=== PATIENT | female | born 1945 | race Caucasian/White ===

== ENCOUNTER 2018-10-28 12:34 | Inpatient (IN) | payer MEDICARE, SELFPAY ==
[2018-10-28] VITALS (10 sets, daily range): BP systolic 74–118; BP diastolic 42–87; PULSE 70–97; RESP 14–20; TEMP 36.3–36.7; O2SAT 93–97; BMI 36.8; BMI 37.0; BMI 37.1
--- NOTE | 2018-10-28 13:20 | EKG12_ITS ---
Test Reason : GEN ILLNESS Blood Pressure : / mmHG Vent. Rate : 072 BPM Atrial Rate : 072 BPM P-R Int : 170 ms QRS Dur : 102 ms QT Int : 462 ms P-R-T Axes : 066 057 069 degrees QTc Int : 505 ms Normal sinus rhythm Nonspecific ST abnormality Prolonged QT Abnormal ECG Confirmed by VIOLETA BRITTON, PIPPA ([id number]), associate editor MACRINA TORRES ([id number] on 10/31/2018 4:43:32 PM Referred By: Alf Addison Confirmed By:PIPPA MCDANIEL MD
--- NOTE | 2018-10-28 13:20 | RAD_ITS ---
STUDY: X-RAY CHEST REASON FOR EXAM: Female, 73 years old. Cough. TECHNIQUE: Frontal and lateral views of the chest. COMPARISON: None. FINDINGS: The lungs are hyperexpanded. There is a diffuse interstitial pattern. There is no demonstrated pleural abnormality. There is cardiomegaly. Normal mediastinum and aly. Normal visualized pulmonary arteries. There is atherosclerotic calcification of the aortic arch with tortuosity. There are diffuse degenerative changes of the visualized thoracic spine. Normal visualized ribs, clavicles, and shoulders. There is a large hiatal hernia. RAD/Chest PA and Lateral IMPRESSION: Cardiomegaly with hyperexpansion, diffuse interstitial pattern and large hiatal hernia. No acute finding. Electronically Signed: Shayne Weldon MD at 14:43 EST , Service support ,
--- NOTE | 2018-10-28 13:25 | NURSING ---
NO OLD EKG
[2018-10-28 13:33] LABS: Absolute Lymphocyte Count 1.92 X10^3/ul (0.83-4.51); Basophil# 0.04 X10^3/uL; Basophil% 0.3 % (0-1); Eosinophil# 0.06 X10^3/uL; Eosinophils% 0.5 % (0-5); Hematocrit 29.5 % (37-47); Hemoglobin 9.8 g/dl (12.0-15.0); Lymphocyte # 1.92 X10^3/ul (4.0); Lymphocyte % 15.9 % (19-41); Mean Corp Hgb Conc 33.2 g/gl (32-36); Mean Corpuscular Hgb 26.1 pg (27.0-32.0); Mean Corpuscular Volume 78.7 fL (81-99); Mean Platelet Vol. 10.1 fl (6.2-12.0); Monocyte% 8.3 % (0-10); Neutrophil # 9.02 X10^3/uL (2.7-7.7); Neutrophil % 74.7 % (47-70); Platelet Count 255 K/mm3 (150-450); RBC Distribution Width CV 15.7 % (11.6-14.6); RBC Distribution Width SD 45.2 fl (35.1-43.9); Red Blood Count 3.75 M/mm3 (4.2-5.4); White Blood Count 12.1 K/mm3 (4.4-11.0)
[2018-10-28 13:35] LABS: POSITIVE COUNT NO; POSITIVE DIFFERENTIAL NO; POSITIVE MORPHOLOGY NO
[2018-10-28] MEDS: 0.9% Normal Saline 1,000 ML 1000 ML IV (13:38)
[2018-10-28 13:56] LABS: ALB/GLOB Ratio 0.8 RATIO (0.9-2.4); AST(SGOT) 30 U/L (15-37); Alanine Aminotransfer ALT/SGPT 18 U/L (13-56); Albumin, Serum 3.3 g/dL (3.2-5.0); Alkaline Phosphatase 90 U/L (45-117); Anion Gap 17 (5-15); BUN 111 mg/dL (7-18); Calcium,Total 8.1 mg/dL (8.5-10.1); Chloride 92 mmol/L (98-107); Creatinine, Serum 9.28 mg/dL (0.55-1.02); EST Glomerular Filtration Rate 4 mL/min (>60); Est Glom Filt Rate - Afr Amer 5 mL/min (>60); Glucose 95 mg/dL (74-106); Protein, Total 7.3 g/dL (6.4-8.2); Sodium Level 124 mmol/L (136-145)
--- NOTE | 2018-10-28 13:57 | ED.RN ---
bun 111 creat 9.28 called from the lab. dr mena
[2018-10-28 14:05] LABS: Lactic Acid 1.2 mmol/L (0.4-2.0)
--- NOTE | 2018-10-28 14:35 | ED.RN ---
UP TO BSC. UNABLE TO URINATE AT THIS TIME. FEW DRIBBLES.
--- NOTE | 2018-10-28 14:41 | ED.VISSUMM ---
- ER Visit Summary Date of Service: 10/28/18 Chief Complaint: Generalized illness History of Present Illness: The patient is a 73 F presents 1 week history of vague symptoms of dizziness, states not spinning, feels unbalanced. Reports dry mouth, staggering, decreased appetite. No nausea or vomiting. No confusion per significant other. Patient is on blood pressure medicine lisinopril hydrochlorothiazide and amlodipine. Also on gabapentin for myalgias. No recent changes in medications. Denies any chest pains. Reports dealing with upper respiratory cough for the past couple weeks. Saw her PCP was placed on antibiotics, she is unclear of the name. States 1 dose left was taken twice a day. Reports of urine frequency, urinary normal yesterday states today had 2 bouts of urination, last time was prior to arrival. Denies dysuria or hematuria. Denies abdominal pain. No previous similar symptoms in the past. Physical Examination: General: Alert and oriented ?3, no acute distress HEENT: Normocephalic, atraumatic. Moist mucosa membranes Neck: supple, nontender. Cardiovascular: Regular rate and rhythm, no murmurs Respiratory: Normal breath sounds, symmetric, no distress Abdomen: Soft, nontender, nondistended Extremities: Nontender, no edema, pulses intact ?4 Neuro: no focal neurological deficits. Test Results: EKG sinus rate [address] or T wave changes. WBC 12.1, hemoglobin 9.8, platelets 255. Sodium 124, potassium 4, BUN 111, creatinine 1.28. Lactic acid 1.2. Blood culture x2 pending. UA: Pending chest x-ray: No acute process Emergency Department Course and Treatment: Patient initial triage blood pressure 74/42, after my evaluation before intervention was 109/59. She was given IV fluids, sepsis workup initiated due to hypotension. Patient vague symptoms. Results of testing did note hyponatremia sodium 124, there is no old labs for comparison in the system. She is on hydrochlorothiazide which could cause this. In addition results returned acute kidney injury with uremia. BUN 111, creatinine 9.28. Potassium 4.0. EKG normal. Reports making urine. Further discussion with her recent antibiotic she thinks it may be Bactrim which family will pepper picker from home to confirm. He is known to cause false elevation of creatinine. She denies any recent sore throat. Vitals were stable multiple reevaluation's. Lactic acid returned negative at 1.2. Blood culture pending. Chest x-ray is negative. Discussed with hospitalist Dr. Milton for admission for further management. Treatment Plan: [] Disposition: Admission Impression: 1. Acute kidney injury 2. Uremia 3. Hyponatremia This note was generated with [employer] dictation software. It may contain incorrect words, spelling, and punctuation that were not noted in review of the chart prior to signing ED Disposition - Plan for ED Patient: Disposition: Acute Care Hospital [facility] Chief Complaint: General Illness Diagnosis: Acute kidney injury, Uremia, Hyponatremia Referrals: Reuben Martinez MD [Primary Care Provider] -
--- NOTE | 2018-10-28 14:44 | ED.RN ---
pt has transparent fluid filled blister to rt buttocks and 2 open blisters with reddness around perameter
--- NOTE | 2018-10-28 14:46 | ED.DCSUM_ITS ---
- ER Visit Summary Date of Service: 10/28/18 Chief Complaint: Generalized illness History of Present Illness: The patient is a 73 F presents 1 week history of vague symptoms of dizziness, states not spinning, feels unbalanced. Reports dry mouth, staggering, decreased appetite. No nausea or vomiting. No confusion per significant other. Patient is on blood pressure medicine lisinopril hydrochlorothiazide and amlodipine. Also on gabapentin for myalgias. No recent changes in medications. Denies any chest pains. Reports dealing with upper respiratory cough for the past couple weeks. Saw her PCP was placed on antibiotics, she is unclear of the name. States 1 dose left was taken twice a day. Reports of urine frequency, urinary normal yesterday states today had 2 bouts of urination, last time was prior to arrival. Denies dysuria or hematuria. Denies abdominal pain. No previous similar symptoms in the past. Physical Examination: General: Alert and oriented ?3, no acute distress HEENT: Normocephalic, atraumatic. Moist mucosa membranes Neck: supple, nontender. Cardiovascular: Regular rate and rhythm, no murmurs Respiratory: Normal breath sounds, symmetric, no distress Abdomen: Soft, nontender, nondistended Extremities: Nontender, no edema, pulses intact ?4 Neuro: no focal neurological deficits. Test Results: EKG sinus rate [address] or T wave changes. WBC 12.1, hemoglobin 9.8, platelets 255. Sodium 124, potassium 4, BUN 111, creatinine 1.28. Lactic acid 1.2. Blood culture x2 pending. UA: Pending chest x-ray: No acute process Emergency Department Course and Treatment: Patient initial triage blood pressure 74/42, after my evaluation before intervention was 109/59. She was given IV fluids, sepsis workup initiated due to hypotension. Patient vague symptoms. Results of testing did note hyponatremia sodium 124, there is no old labs for comparison in the system. She is on hydrochlorothiazide which could cause this. In addition results returned acute kidney injury with uremia. BUN 111, creatinine 9.28. Potassium 4.0. EKG normal. Reports making urine. Further discussion with her recent antibiotic she thinks it may be Bactrim which family will last picker from home to confirm. He is known to cause false elevation of creatinine. She denies any recent sore throat. Vitals were stable multiple reevaluation's. Lactic acid returned negative at 1.2. Blood culture pending. Chest x-ray is negative. Discussed with hospitalist Dr. Milton for admission for further management. Treatment Plan: [] Disposition: Admission Impression: 1. Acute kidney injury 2. Uremia 3. Hyponatremia This note was generated with [employer] dictation software. It may contain incorrect words, spelling, and punctuation that were not noted in review of the chart prior to signing ED Disposition - Plan for ED Patient: Disposition: Acute Care Hospital [facility] Chief Complaint: General Illness Diagnosis: Acute kidney injury, Uremia, Hyponatremia Referrals: Reuben Martinez MD [Primary Care Provider] -
--- NOTE | 2018-10-28 15:31 | HP.PCM_ITS ---
Problem List (1) Acute kidney injury Status: Acute (2) Hyponatremia Status: Acute (3) Metabolic acidosis Status: Acute History of Present Illness Date of Admission: 10/28/18 Chief Complaint: weakness The patient is a 73 year old F has been feeling weak over the past several weeks. Proximal he 1 week ago, was started on Bactrim for what sounds like an upper respiratory infection. Symptoms of just continue to get worse and patient presented to the emergency room today. In the emergency room, patient was noted to have a sodium of 124 and a creatinine of 9.28. No baseline labs were available to be compare to. Patient denies any history of kidney disease. Patient states that she is not had much of an appetite but has been drinking water continuously. Patient has been urinating without difficulty. [] Past Medical History Medical History: Medical History (Last Updated 10/28/18 @ 15:31 by Alf Addison DO) Anxiety F41.9 HTN (hypertension) I10 Allergies No Known Allergies Allergy (Verified 07/20/17 03:43) Home Medications: Ambulatory Orders Medication Instructions Recorded Triamcinolone 0.1% Cream [Kenalog] 1 applic TOPICAL TID PRN #1 tube 07/20/17 Amlodipine Besylate [Norvasc] 10 mg PO DAILY 10/28/18 Buspirone HCl 30 mg PO BID 10/28/18 Citalopram [Celexa] 10 mg PO DAILY 10/28/18 Gabapentin [Neurontin] 400 mg PO TIDCM 10/28/18 Lisinopril/Hydrochlorothiazide 2 each PO DAILY 10/28/18 [Lisinopril-Hctz 20-12.5 mg Tab] Smz/Tmp Ds [Bactrim Ds] 1 tablet PO BID 10/28/18 Surgical History: no surgical history Psychiatric History: Anxiety Lives: With Family Smoking Status: Current every day smoker Tobacco Use: Non-smoker Alcohol: None Drugs: None - *Family History Maternal History Items: - - no kidney disease Review of Systems Constitutional: Reports: Anorexia. Denies: Chills, Fever, Night Sweats Eyes: Denies: Blurred vision, Double vision HEENT: Denies: Head Aches, Sinus Congestion, Sinus Drainage Cardiovascular: Denies: Chest Pain, Palpitations Respiratory: Denies: Cough, Shortness of breath at rest, Sputum production Gastrointestinal: Denies: Abdominal Pain, Nausea, Vomiting Genitourinary: Denies: Dysuria, Incontinence Musculoskeletal: Denies: Joint Pain, Joint Tenderness Skin: Reports: - - Did develop a sore on her buttocks as patient states that she has been laying around and not getting up since she has been ill.. Denies: Dryness, Jaundice Neurological: Denies: Numbness, Tingling, Focal weakness Psychiatric: Denies: Anxiety, Depression Endocrine: Denies: Change in Body Habitus Hematologic/ Lymphatic: Denies: Easy Bruising, Easy Bleeding, Hx of blood clot Comment: A 10 point review of systems were negative except as mentioned in the history of present illness and the other review of systems. VTE Information - Inpt Only VTE Present on Admission: No VTE Mechan Device Prophylaxis: None VTE Pharm Prophylaxis ordered?: Yes Patient Problems: Active and Suspected Problems Acute kidney injury (Acute) Hyponatremia (Acute) Metabolic acidosis (Acute) - Physical Exam General: Alert, Cooperative, No apparent distress, - - Listless. Afebrile. HEENT: Atraumatic, Normocephalic Oral: Moist Mucosa, No Gingival or Mucosal Lesions/ Ulcerations Neck: No Nodes, Thyroid Normal Size and Texture Lungs: Clear to auscultation, Normal air movement, No rhonchi, No wheeze Cardiovascular: Regular rate, Regular Rhythm, Normal S1, Normal S2, No murmurs Abdomen: Bowel Sounds Present, Soft, Non Tender, Non-Distended, No Hepato- splenomegaly Extremities: No edema, No Calf Tenderness Skin: No rashes, - - Likely stage II left buttocks. Has what appears to be some unroofed bullae x2 on her buttocks. No surrounding erythema to suggest any kind of cellulitis. No induration noted no fluctuance. Musculoskeletal: No Tenderness to Palpation of Joints or Extremities, No Muscle Wasting Neurological: Neuro grossly intact, Sensory exam intact to light touch and pain, - - No clonus Psych/Mental Status: Appropriate, Flat Affect Vital Signs Temp Pulse Resp BP Pulse Ox 36.3 C L 71 16 118/65 97 10/28/18 12:35 10/28/18 15:03 10/28/18 15:03 10/28/18 15:03 10/28/18 15:03 Oxygen Delivery Method Room Air Weight: 91.217 kg Body Mass Index (BMI) 36.8 Laboratory Tests Past 24 Hrs 10/28/18 10/28/18 10/28/18 12:50 12:50 13:30 WBC 12.1 H RBC 3.75 L Hgb 9.8 L Hct 29.5 L MCV 78.7 L MCH 26.1 L MCHC 33.2 RDW 15.7 H RDW Differential 45.2 H Plt Count 255 MPV 10.1 Immature Gran % (Auto) 0.300 Neut % (Auto) 74.7 H Lymph % (Auto) 15.9 L [place] % (Auto) 8.3 Eos % (Auto) 0.5 Baso % (Auto) 0.3 Absolute Neuts (auto) 9.0 H Absolute Lymphs (auto) 1.92 Total Counted Not Reportable Sodium 124 L Potassium 4.0 Chloride 92 L Carbon Dioxide 15.0 L Anion Gap 17 H BUN 111 H* Creatinine 9.28 H* Estim Creat Clear Calc 4.40 Est GFR (MDRD) Af Amer 5 L Est GFR (MDRD) Non-Af 4 L BUN/Creatinine Ratio 12.0 Glucose 95 Lactic Acid 1.2 Calcium 8.1 L Total Bilirubin 0.10 L AST 30 ALT 18 Alkaline Phosphatase 90 Total Protein 7.3 Albumin 3.3 Globulin 4.0 Albumin/Globulin Ratio 0.8 L Assessment/Plan All Active Problems Acute kidney injury (Acute) Hyponatremia (Acute) Metabolic acidosis (Acute) 1. Acute kidney injury Etiology not yet clear, but suspect probably iatrogenic, particularly, Bactrim. Though the lisinopril HCTZ likely also contributing. Hold nephrotoxic agents IV fluids Check urine studies as well as kidney ultrasound I do not anticipate the patient requiring renal replacement therapy. I have consulted nephrology for further assistance and discussed with Dr. Simeon. I will decrease the patient's Neurontin from 400 3 times daily to 100 3 times daily given the acute kidney injury at this time. 2. Hyponatremia Suspect iatrogenic due to HCTZ Hold HCTZ Monitor sodium 3. Metabolic acidosis Secondary to the acute kidney injury No need for bicarbonate at this time 4. Debility and weakness Likely due to the patient's metabolic derangements PT and OT evaluate and treat 5. DVT prophylaxis with subcu heparin 6. Stage II decubitus ulcer Over the right buttocks Just some dry dressings Consult wound care Likely due to the patient being essentially bedbound past several weeks Code Visit Inpatient E&M: 36684 Init Hosp L3
--- NOTE | 2018-10-28 16:02 | PCM.CONS.R ---
Problem List (1) Acute kidney injury Status: Acute (2) Hyponatremia Status: Acute Consultation - Renal PCP/ Referring MD: Requesting physician: [] Primary care physician: Reuben Martinez MD - History of Present Illness History of Present Illness: The patient is a 73 year old F past medical history of hypertension. Patient had symptoms of upper respiratory infection a week ago for which she was started on Bactrim . Upper respiratory infection symptoms improved but patient developed weakness . She presented to the emergency room where she was found to have creatinine of 9 and BUN of 111 . Also sodium was 124 . Patient denies any history of kidney disease . Patient has been taking the same dose of lisinopril /hydrochlorothiazide /Norvasc for a year . She takes ibuprofen 200 mg as needed . She did not take it for the last week . No IV contrast exposure . No recent UTI . Patient is making urine . Patient has also been having low appetite and not eating well for the last week Review of systems : 12 systems review is negative except for generalized weakness [] - Allergies Allergies: Allergies No Known Allergies Allergy (Verified 07/20/17 03:43) - Current Medications Current Medications: Current Medications Acetaminophen (Tylenol) 650 mg PO Q6H PRN PRN PRN Reason: Mild Pain (1-3)/Temp > 100.7 F Amlodipine Besylate (Norvasc) 10 mg PO DAILY [facility] Betamethasone Valerate (Valisone 0.1% Cream) 1 applic TOPICAL TID PRN; Protocol PRN Reason: RASH/TOPICAL IRRITATION Buspirone HCl (Buspar) 30 mg PO BID [facility] Citalopram Hydrobromide (Celexa) 10 mg PO DAILY [facility] Gabapentin (Neurontin) 100 mg PO TIDCM [facility] Heparin Sodium (Porcine) (Heparin Na) 5,000 unit SC Q8 [facility] Sodium Chloride () 1,000 mls @ 150 mls/hr IV .Q6H40M [facility] Stop: 10/29/18 05:08 Magnesium Hydroxide (Milk Of Magnesia) 30 ml PO DAILY PRN PRN PRN Reason: Constipation Ondansetron HCl (Zofran) 4 mg IV Q8H PRN PRN PRN Reason: NAUSEA - Past Surgical History Surgical History: no surgical history - Social History Smoking Status: Current every day smoker Alcohol: None Drugs: None - Family History Maternal History Items: - - no kidney disease Patient Problems: Active and Suspected Problems (Last Updated 10/28/18 @ 15:31 by Alf Addison DO) Acute kidney injury (Acute) Hyponatremia (Acute) Metabolic acidosis (Acute) - Physical Exam General: Alert, Oriented x3 HEENT: Atraumatic Oral: Dry Mucosa Neck: Supple, No JVD Lungs: Clear to auscultation, Normal air movement, No rhonchi Cardiovascular: Regular rate, Regular Rhythm, Normal S1, Normal S2 Abdomen: Bowel Sounds Present, Soft, Non Tender Extremities: No clubbing, No cyanosis, No edema Skin: No rashes Musculoskeletal: No Tenderness to Palpation of Joints or Extremities Lymphatic: No Cervical, Supraclavicular, or Inguinal Adenopathy Neurological: Cranial nerves II-XII grossly intact, Neuro grossly intact Psych/Mental Status: Normal Affect Vital Signs Temp Pulse Resp BP Pulse Ox 97.4 F L 71 16 118/65 97 10/28/18 12:35 10/28/18 15:03 10/28/18 15:03 10/28/18 15:03 10/28/18 15:03 Oxygen Delivery Method Room Air Weight: 91.217 kg Body Mass Index (BMI) 36.8 Laboratory Tests Past 24 Hrs 10/28/18 10/28/18 10/28/18 12:50 12:50 13:30 WBC 12.1 H RBC 3.75 L Hgb 9.8 L Hct 29.5 L MCV 78.7 L MCH 26.1 L MCHC 33.2 RDW 15.7 H RDW Differential 45.2 H Plt Count 255 MPV 10.1 Immature Gran % (Auto) 0.300 Neut % (Auto) 74.7 H Lymph % (Auto) 15.9 L [place] % (Auto) 8.3 Eos % (Auto) 0.5 Baso % (Auto) 0.3 Absolute Neuts (auto) 9.0 H Absolute Lymphs (auto) 1.92 Total Counted Not Reportable Sodium 124 L Potassium 4.0 Chloride 92 L Carbon Dioxide 15.0 L Anion Gap 17 H BUN 111 H* Creatinine 9.28 H* Estim Creat Clear Calc 4.40 Est GFR (MDRD) Af Amer 5 L Est GFR (MDRD) Non-Af 4 L BUN/Creatinine Ratio 12.0 Glucose 95 Lactic Acid 1.2 Calcium 8.1 L Total Bilirubin 0.10 L AST 30 ALT 18 Alkaline Phosphatase 90 Total Protein 7.3 Albumin 3.3 Globulin 4.0 Albumin/Globulin Ratio 0.8 L Assessment/Plan All Active Problems (Last Updated 10/28/18 @ 15:31 by Alf Addison DO) Acute kidney injury (Acute) Hyponatremia (Acute) Metabolic acidosis (Acute) 1-acute kidney injury. Unknown if the patient has chronic kidney disease. There is no BMP available in the system from before. Acute kidney injury is most probably from Bactrim. Creatinine up to 9. BUN 111. Patient still making urine. No indication for hemodialysis. Will send for UA along with urine sodium and urine creatinine to calculate FeNa Order renal ultrasound Agree with holding BIRGIT inhibitor. We will start patient sodium bicarb drip due to acidosis. Check renal function a.m. 2-metabolic acidosis. Most probably from acute kidney injury. I will start the patient on sodium bicarb drip. Check bicarb level in a.m.. 3-hyponatremia. Most probably from dehydration. We will start the patient IV fluid as above Thank you for the consult. Renal team will continue to follow
--- NOTE | 2018-10-28 16:06 | CON.PCM_ITS ---
Problem List (1) Acute kidney injury Status: Acute (2) Hyponatremia Status: Acute Consultation - Renal PCP/ Referring MD: Requesting physician: [] Primary care physician: Reuben Martinez MD - History of Present Illness History of Present Illness: The patient is a 73 year old F past medical history of hypertension. Patient had symptoms of upper respiratory infection a week ago for which she was started on Bactrim . Upper respiratory infection symptoms improved but patient developed weakness . She presented to the emergency room where she was found to have creatinine of 9 and BUN of 111 . Also sodium was 124 . Patient denies any history of kidney disease . Patient has been taking the same dose of lisinopril /hydrochlorothiazide /Norvasc for a year . She takes ibuprofen 200 mg as needed . She did not take it for the last week . No IV contrast exposure . No recent UTI . Patient is making urine . Patient has also been having low appetite and not eating well for the last week Review of systems : 12 systems review is negative except for generalized weakness [] - Allergies Allergies: Allergies No Known Allergies Allergy (Verified 07/20/17 03:43) - Current Medications Current Medications: Current Medications Acetaminophen (Tylenol) 650 mg PO Q6H PRN PRN PRN Reason: Mild Pain (1-3)/Temp > 100.7 F Amlodipine Besylate (Norvasc) 10 mg PO DAILY [facility] Betamethasone Valerate (Valisone 0.1% Cream) 1 applic TOPICAL TID PRN; Protocol PRN Reason: RASH/TOPICAL IRRITATION Buspirone HCl (Buspar) 30 mg PO BID [facility] Citalopram Hydrobromide (Celexa) 10 mg PO DAILY [facility] Gabapentin (Neurontin) 100 mg PO TIDCM [facility] Heparin Sodium (Porcine) (Heparin Na) 5,000 unit SC Q8 [facility] Sodium Chloride () 1,000 mls @ 150 mls/hr IV .Q6H40M [facility] Stop: 10/29/18 05:08 Magnesium Hydroxide (Milk Of Magnesia) 30 ml PO DAILY PRN PRN PRN Reason: Constipation Ondansetron HCl (Zofran) 4 mg IV Q8H PRN PRN PRN Reason: NAUSEA - Past Surgical History Surgical History: no surgical history - Social History Smoking Status: Current every day smoker Alcohol: None Drugs: None - Family History Maternal History Items: - - no kidney disease Patient Problems: Active and Suspected Problems (Last Updated 10/28/18 @ 15:31 by Alf Addison DO) Acute kidney injury (Acute) Hyponatremia (Acute) Metabolic acidosis (Acute) - Physical Exam General: Alert, Oriented x3 HEENT: Atraumatic Oral: Dry Mucosa Neck: Supple, No JVD Lungs: Clear to auscultation, Normal air movement, No rhonchi Cardiovascular: Regular rate, Regular Rhythm, Normal S1, Normal S2 Abdomen: Bowel Sounds Present, Soft, Non Tender Extremities: No clubbing, No cyanosis, No edema Skin: No rashes Musculoskeletal: No Tenderness to Palpation of Joints or Extremities Lymphatic: No Cervical, Supraclavicular, or Inguinal Adenopathy Neurological: Cranial nerves II-XII grossly intact, Neuro grossly intact Psych/Mental Status: Normal Affect Vital Signs Temp Pulse Resp BP Pulse Ox 97.4 F L 71 16 118/65 97 10/28/18 12:35 10/28/18 15:03 10/28/18 15:03 10/28/18 15:03 10/28/18 15:03 Oxygen Delivery Method Room Air Weight: 91.217 kg Body Mass Index (BMI) 36.8 Laboratory Tests Past 24 Hrs 10/28/18 10/28/18 10/28/18 12:50 12:50 13:30 WBC 12.1 H RBC 3.75 L Hgb 9.8 L Hct 29.5 L MCV 78.7 L MCH 26.1 L MCHC 33.2 RDW 15.7 H RDW Differential 45.2 H Plt Count 255 MPV 10.1 Immature Gran % (Auto) 0.300 Neut % (Auto) 74.7 H Lymph % (Auto) 15.9 L [place] % (Auto) 8.3 Eos % (Auto) 0.5 Baso % (Auto) 0.3 Absolute Neuts (auto) 9.0 H Absolute Lymphs (auto) 1.92 Total Counted Not Reportable Sodium 124 L Potassium 4.0 Chloride 92 L Carbon Dioxide 15.0 L Anion Gap 17 H BUN 111 H* Creatinine 9.28 H* Estim Creat Clear Calc 4.40 Est GFR (MDRD) Af Amer 5 L Est GFR (MDRD) Non-Af 4 L BUN/Creatinine Ratio 12.0 Glucose 95 Lactic Acid 1.2 Calcium 8.1 L Total Bilirubin 0.10 L AST 30 ALT 18 Alkaline Phosphatase 90 Total Protein 7.3 Albumin 3.3 Globulin 4.0 Albumin/Globulin Ratio 0.8 L Assessment/Plan All Active Problems (Last Updated 10/28/18 @ 15:31 by Alf Addison DO) Acute kidney injury (Acute) Hyponatremia (Acute) Metabolic acidosis (Acute) 1-acute kidney injury. Unknown if the patient has chronic kidney disease. There is no BMP available in the system from before. Acute kidney injury is most probably from Bactrim. Creatinine up to 9. BUN 111. Patient still making urine. No indication for hemodialysis. Will send for UA along with urine sodium and urine creatinine to calculate FeNa Order renal ultrasound Agree with holding BIRGIT inhibitor. We will start patient sodium bicarb drip due to acidosis. Check renal function a.m. 2-metabolic acidosis. Most probably from acute kidney injury. I will start the patient on sodium bicarb drip. Check bicarb level in a.m.. 3-hyponatremia. Most probably from dehydration. We will start the patient IV fluid as above Thank you for the consult. Renal team will continue to follow
--- NOTE | 2018-10-28 16:53 | NURSING ---
pt reports recently that her PCP told her that her murmur is worsening and ordered EKG-
[2018-10-28] MEDS: 0.9% NaCl Peripheral Flush Adult/Peds IV (17:43)
[2018-10-28] MEDS: Gabapentin 100 MG Capsule PO (17:51)
[2018-10-28 20:50] LABS: Bacteria 0 SEEN /hpf (None Seen); Mucous, Urine 0 SEEN /hpf (<or=2+); Red Blood Cells-Urine 0 SEEN /hpf (0-5); White Blood Cells 0 SEEN /hpf (0-5)
[2018-10-28 20:59] LABS: Color, Urine Yellow (Yellow); Glucose, Dipstick Normal (Normal); Ketone-Dipstick Negative (Negative); Leukocyte Esterase-Dipstick Negative /ul (Negative); Nitrite-Dipstick Negative (Negative); Occult Blood-Urine Negative /ul (Negative); Protein-Dipstick Negative (Negative); Urine Clarity Clear (Clear); Urine Urobilinogen Normal (Normal)
[2018-10-28 21:09] LABS: Squamous Epithelial Cells - UA 0-5 SEEN /hpf (5-10); Urine Bilirubin Dipstick 3 mg/dL (Negative)
[2018-10-28] MEDS: Heparin Injection (Vial) 5,000 UNIT/ML VIAL 5000 UNIT SC (21:26)
[2018-10-28] MEDS: busPIRone 15 MG TABLET 30 MG PO (21:26)
[2018-10-28 21:45] LABS: Urea Nitrogen, Urine 482 mg/dL (NO RANGE EST.)
[2018-10-29 02:50] VITALS: BP 121/53; PULSE 81; RESP 20; TEMP 36.3; O2SAT 95
[2018-10-29 03:00] VITALS: PULSE 81
[2018-10-29] MEDS: Heparin Injection (Vial) 5,000 UNIT/ML VIAL 5000 UNIT SC ×3 (06:14→21:22)
[2018-10-29 06:56] LABS: Absolute Lymphocyte Count 1.46 X10^3/ul (0.83-4.51); Absolute Neutrophil Count 6.2 X10^3/uL (2.0-7.7); Basophil# 0.03 X10^3/uL; Basophil% 0.3 % (0-1); Eosinophil# 0.12 X10^3/uL; Eosinophils% 1.4 % (0-5); Hematocrit 26.5 % (37-47); Hemoglobin 8.9 g/dl (12.0-15.0); Lymphocyte # 1.46 X10^3/ul (4.0); Lymphocyte % 16.7 % (19-41); Mean Corp Hgb Conc 33.6 g/gl (32-36); Mean Corpuscular Hgb 26.1 pg (27.0-32.0); Mean Corpuscular Volume 77.7 fL (81-99); Mean Platelet Vol. 10.7 fl (6.2-12.0); Monocyte# 0.92 X10^3/uL; Monocyte% 10.5 % (0-10); Neutrophil # 6.19 X10^3/uL (2.7-7.7); Neutrophil % 70.8 % (47-70); Platelet Count 210 K/mm3 (150-450); RBC Distribution Width CV 15.2 % (11.6-14.6); RBC Distribution Width SD 41.8 fl (35.1-43.9); Red Blood Count 3.41 M/mm3 (4.2-5.4); White Blood Count 8.8 K/mm3 (4.4-11.0)
[2018-10-29 07:03] LABS: POSITIVE COUNT NO; POSITIVE DIFFERENTIAL NO; POSITIVE MORPHOLOGY NO
[2018-10-29 07:58] LABS: Anion Gap 14 (5-15); BUN 105 mg/dL (7-18); Chloride 91 mmol/L (98-107); Creatinine, Serum 6.99 mg/dL (0.55-1.02); EST Glomerular Filtration Rate 6 mL/min (>60); Est Glom Filt Rate - Afr Amer 7 mL/min (>60); Estimated Creatinine Clearance 5.57 ml/min; Glucose 103 mg/dL (74-106); Potassium 4.9 mmol/L (3.5-5.1); Sodium Level 125 mmol/L (136-145)
--- NOTE | 2018-10-29 09:40 | PCM.PN.HOSP ---
Patient Problems: Active and Suspected Problems (Last Updated 10/28/18 @ 15:31 by Alf Addison DO) Acute kidney injury (Acute) Hyponatremia (Acute) Metabolic acidosis (Acute) Subjective: Patient was admitted with a complaint of feeling of weakness for the past few weeks prior to presentation. He was started on Bactrim about a week prior to presentation fourth seems like an upper respiratory tract infection. His symptoms of weakness and lethargy worsened she came into the ED. He was found to have sodium of 124 and creatinine of 9.28 with no baseline labs available to compare to. She however says she may have any kidney disease. She was admitted to a monitored bed and is being managed for AK I and hyponatremia. Patient seen and examined this morning. She admits to feeling better. She denies any fever or chills, any palpitations, any dizziness, lightheadedness, abdominal 12 point review of systems otherwise negative. Labs and vitals reviewed. Vitals/I&O's: Vital Signs Temp Pulse Resp BP Pulse Ox 97.4 F L 81 20 H 121/53 H 95 10/29/18 02:50 10/29/18 03:00 10/29/18 02:50 10/29/18 02:50 10/29/18 02:50 Oxygen Delivery Method Room Air Weight: 201 lb 8.04 oz Body Mass Index (BMI) 37.0 Intake and Output for Last 24 Hours 10/27/18 10/28/18 10/29/18 23:59 23:59 23:59 Intake Total 1984 766 / 766 Output Total 425 / 425 Balance 1560 / 1560 766 / 766 General: Alert, Oriented x3, Cooperative, No apparent distress HEENT: Atraumatic, PERRLA, EOMI, Normocephalic Oral: Moist Mucosa Neck: Supple, No JVD, Negative Carotid Bruits Lungs: Clear to auscultation, Normal air movement, No rhonchi, No wheeze, No rales Cardiovascular: Regular rate, Regular Rhythm, Normal S1, Normal S2, - - grade 2-3 systolic murmur loudest in aortic and pulmonary valve areas Abdomen: Bowel Sounds Present, Soft, Non Tender, Non-Distended, No Hepato-splenomegaly Extremities: No clubbing, No cyanosis, No edema, Capillary Refill Less than 3 Seconds Skin: No rashes, No breakdown Musculoskeletal: No Tenderness to Palpation of Joints or Extremities Lymphatic: No Cervical, Supraclavicular, or Inguinal Adenopathy Neurological: Cranial nerves II-XII grossly intact, Neuro grossly intact, Motor Exam 5/5 strength throughout Psych/Mental Status: Normal Affect, Appropriate, Alert and oriented to time, place, person, mood and affect Laboratory Results 10/28/18 12:50: WBC 12.1 H, RBC 3.75 L, Hgb 9.8 L, Hct 29.5 L, MCV 78.7 L, MCH 26.1 L, MCHC 33.2, RDW 15.7 H, RDW Differential 45.2 H, Plt Count 255, MPV 10.1, Immature Gran % (Auto) 0.300, Neut % (Auto) 74.7 H, Lymph % (Auto) 15.9 L, [place] % (Auto) 8.3, Eos % (Auto) 0.5, Baso % (Auto) 0.3, Absolute Neuts (auto) 9.0 H, Absolute Lymphs (auto) 1.92, Total Counted Not Reportable 10/28/18 12:50: Sodium 124 L, Potassium 4.0, Chloride 92 L, Carbon Dioxide 15.0 L, Anion Gap 17 H, BUN 111 H*, Creatinine 9.28 H*, Estim Creat Clear Calc 4.40, Est GFR (MDRD) Af Amer 5 L, Est GFR (MDRD) Non-Af 4 L, BUN/Creatinine Ratio 12.0, Glucose 95, Calcium 8.1 L, Total Bilirubin 0.10 L, AST 30, ALT 18, Alkaline Phosphatase 90, Total Protein 7.3, Albumin 3.3, Globulin 4.0, Albumin/Globulin Ratio 0.8 L 10/28/18 13:30: Lactic Acid 1.2 10/28/18 19:37: Urine Color Yellow, Urine Clarity Clear, Urine pH 5.0, Ur Specific [place] 1.020, Urine Protein Negative, Urine Glucose (UA) Normal, Urine Ketones Negative, Urine Occult Blood Negative, Urine Nitrite Negative, Urine Bilirubin 3 H, Urine Urobilinogen Normal, Ur Leukocyte Esterase Negative, Urine RBC 0 SEEN, Urine WBC 0 SEEN, Ur Squamous Epith Cells 0-5 SEEN, Urine Bacteria 0 SEEN, Urine Mucus 0 SEEN 10/28/18 19:37: Eos Smear Total Cells Pending 10/28/18 19:37: Urine Creatinine 120.00 10/28/18 19:37: Urine Urea Nitrogen 482 10/29/18 06:05: WBC 8.8, RBC 3.41 L, Hgb 8.9 L, Hct 26.5 L, MCV 77.7 L, MCH 26.1 L, MCHC 33.6, RDW 15.2 H, RDW Differential 41.8, Plt Count 210, MPV 10.7, Immature Gran % (Auto) 0.300, Neut % (Auto) 70.8 H, Lymph % (Auto) 16.7 L, [place] % (Auto) 10.5 H, Eos % (Auto) 1.4, Baso % (Auto) 0.3, Absolute Neuts (auto) 6.2, Absolute Lymphs (auto) 1.46, Total Counted Not Reportable 10/29/18 06:05: Sodium 125 L, Potassium 4.9, Chloride 91 L, Carbon Dioxide 20.0 L, Anion Gap 14, BUN 105 H*, Creatinine 6.99 H, Estim Creat Clear Calc 5.57, Est GFR (MDRD) Af Amer 7 L, Est GFR (MDRD) Non-Af 6 L, BUN/Creatinine Ratio 15.0, Glucose 103, Calcium 8.0 L 10/29/18 06:05: Sodium Cancelled, Potassium Cancelled, Chloride Cancelled, Carbon Dioxide Cancelled, Anion Gap Cancelled, BUN Cancelled, Creatinine Cancelled, Estim Creat Clear Calc Cancelled, Est GFR (MDRD) Af Amer Cancelled, Est GFR (MDRD) Non-Af Cancelled, BUN/Creatinine Ratio Cancelled, Glucose Cancelled, Calcium Cancelled Diagnostic Data Chest X-Ray 10/28/18 13:20 IMPRESSION: Cardiomegaly with hyperexpansion, diffuse interstitial pattern and large hiatal hernia. No acute finding. Electronically Signed: Shayne Weldon MD at 14:43 EST , Service support , Current Medications Acetaminophen (Tylenol) 650 mg PO Q6H PRN PRN PRN Reason: Mild Pain (1-3)/Temp > 100.7 F Amlodipine Besylate (Norvasc) 10 mg PO DAILY [facility] Betamethasone Valerate (Valisone 0.1% Cream) 1 applic TOPICAL TID PRN; Protocol PRN Reason: RASH/TOPICAL IRRITATION Buspirone HCl (Buspar) 30 mg PO BID [facility] Last Admin: 10/28/18 21:26 Dose: 30 mg Citalopram Hydrobromide (Celexa) 10 mg PO DAILY [facility] Gabapentin (Neurontin) 100 mg PO TIDCM [facility] Last Admin: 10/28/18 17:51 Dose: 100 mg Heparin Sodium (Porcine) (Heparin Na) 5,000 unit SC Q8 [facility] Last Admin: 10/29/18 06:14 Dose: 5,000 unit Sodium Bicarbonate 50 meq/ (Dextrose) 1,050 mls @ 150 mls/hr IV .Q7H [facility] Stop: 10/29/18 18:01 Magnesium Hydroxide (Milk Of Magnesia) 30 ml PO DAILY PRN PRN PRN Reason: Constipation Nutritional Formula (Lactose Free) (Ensure Enlive) 120 ml PO 4X/DAY [facility] Last Admin: 10/28/18 21:31 Dose: 120 ml Ondansetron HCl (Zofran) 4 mg IV Q8H PRN PRN PRN Reason: NAUSEA Sodium Chloride () 5 - 15 ml IV UD PRN PRN Reason: SALINE FLUSH Last Admin: 10/28/18 17:43 Dose: 10 ml Medical Necessity - Tobacco Use Smoking Status: Current every day smoker Tobacco Use: Non-smoker Assessment/Plan All Active Problems (Last Updated 10/28/18 @ 15:31 by Alf Addison DO) Acute kidney injury (Acute) Hyponatremia (Acute) Metabolic acidosis (Acute) 1. ILANA possibly pre-renal from decreased intake, and also possibly medication induced, from Bactrim has no complaints this morning. Feels well Cr was 9.28 on admission; has trended down to 6.99 today on IVF NS @ 100cc/hr; will increase to 250cc/hr o/a of hyponatremia will monitor kidney function UA was normal; FeURrea was 33.6, suggesting pre-renal disease renal USG ordered and is pending nephrology consulted; awaiting rec's 2. Acute hypovolemic hyponatremia Na was 124 on admission; is up to 125 today no baseline to compare with will check serum osmolality, urine osmolality and urine sodium will hydrate at 250cc/hr and check BMP q6hrly; goal is to correct sodium by 8-10 mmol/L over 24hours nephrology on board 3. Acute anion gap acidosis due to uremia improving. ANion gap was 17 on admission, with bicarb of 15 bicarb is up to 20 today and anion gap is down to 14. continue hydrating with IVF and monitor Also sodium bicarb drip 4. Stage II decubitus ulcer: present on admission. Wound care consult. 5. Debility due to general medical condition PT/OT consulted 6. Hypertension: controlled. On amlodipine. Lisinopril and HCTZ on hold o/a of hyponatremia and ILANA 7. Depression: On buspirone and citalopram DVT prophylaxis: heparin Code Visit Inpatient E&M: [id number] [facility] Hosp L3
--- NOTE | 2018-10-29 09:54 | PN_ITS ---
Patient Problems: Active and Suspected Problems (Last Updated 10/28/18 @ 15:31 by Alf Addison DO) Acute kidney injury (Acute) Hyponatremia (Acute) Metabolic acidosis (Acute) Subjective: Patient was admitted with a complaint of feeling of weakness for the past few weeks prior to presentation. He was started on Bactrim about a week prior to presentation fourth seems like an upper respiratory tract infection. His symptoms of weakness and lethargy worsened she came into the ED. He was found to have sodium of 124 and creatinine of 9.28 with no baseline labs available to compare to. She however says she may have any kidney disease. She was admitted to a monitored bed and is being managed for AK I and hyponatremia. Patient seen and examined this morning. She admits to feeling better. She denies any fever or chills, any palpitations, any dizziness, lightheadedness, abdominal 12 point review of systems otherwise negative. Labs and vitals reviewed. Vitals/I&O's: Vital Signs Temp Pulse Resp BP Pulse Ox 97.4 F L 81 20 H 121/53 H 95 10/29/18 02:50 10/29/18 03:00 10/29/18 02:50 10/29/18 02:50 10/29/18 02:50 Oxygen Delivery Method Room Air Weight: 201 lb 8.04 oz Body Mass Index (BMI) 37.0 Intake and Output for Last 24 Hours 10/27/18 10/28/18 10/29/18 23:59 23:59 23:59 Intake Total 1984 766 / 766 Output Total 425 / 425 Balance 1560 / 1560 766 / 766 General: Alert, Oriented x3, Cooperative, No apparent distress HEENT: Atraumatic, PERRLA, EOMI, Normocephalic Oral: Moist Mucosa Neck: Supple, No JVD, Negative Carotid Bruits Lungs: Clear to auscultation, Normal air movement, No rhonchi, No wheeze, No rales Cardiovascular: Regular rate, Regular Rhythm, Normal S1, Normal S2, - - grade 2- 3 systolic murmur loudest in aortic and pulmonary valve areas Abdomen: Bowel Sounds Present, Soft, Non Tender, Non-Distended, No Hepato- splenomegaly Extremities: No clubbing, No cyanosis, No edema, Capillary Refill Less than 3 Seconds Skin: No rashes, No breakdown Musculoskeletal: No Tenderness to Palpation of Joints or Extremities Lymphatic: No Cervical, Supraclavicular, or Inguinal Adenopathy Neurological: Cranial nerves II-XII grossly intact, Neuro grossly intact, Motor Exam 5/5 strength throughout Psych/Mental Status: Normal Affect, Appropriate, Alert and oriented to time, place, person, mood and affect Laboratory Results 10/28/18 12:50: WBC 12.1 H, RBC 3.75 L, Hgb 9.8 L, Hct 29.5 L, MCV 78.7 L, MCH 26.1 L, MCHC 33.2, RDW 15.7 H, RDW Differential 45.2 H, Plt Count 255, MPV 10.1, Immature Gran % (Auto) 0.300, Neut % (Auto) 74.7 H, Lymph % (Auto) 15.9 L, [place] % (Auto) 8.3, Eos % (Auto) 0.5, Baso % (Auto) 0.3, Absolute Neuts (auto) 9.0 H, Absolute Lymphs (auto) 1.92, Total Counted Not Reportable 10/28/18 12:50: Sodium 124 L, Potassium 4.0, Chloride 92 L, Carbon Dioxide 15.0 L, Anion Gap 17 H, BUN 111 H*, Creatinine 9.28 H*, Estim Creat Clear Calc 4.40, Est GFR (MDRD) Af Amer 5 L, Est GFR (MDRD) Non-Af 4 L, BUN/Creatinine Ratio 12.0, Glucose 95, Calcium 8.1 L, Total Bilirubin 0.10 L, AST 30, ALT 18, Al kaline Phosphatase 90, Total Protein 7.3, Albumin 3.3, Globulin 4.0, Albumin/Globulin Ratio 0.8 L 10/28/18 13:30: Lactic Acid 1.2 10/28/18 19:37: Urine Color Yellow, Urine Clarity Clear, Urine pH 5.0, Ur Specific [place] 1.020, Urine Protein Negative, Urine Glucose (UA) Normal, Urine Ketones Negative, Urine Occult Blood Negative, Urine Nitrite Negative, Urine Bilirubin 3 H, Urine Urobilinogen Normal, Ur Leukocyte Esterase Negative, Urine RBC 0 SEEN, Urine WBC 0 SEEN, Ur Squamous Epith Cells 0-5 SEEN, Urine Bacteria 0 SEEN, Urine Mucus 0 SEEN 10/28/18 19:37: Eos Smear Total Cells Pending 10/28/18 19:37: Urine Creatinine 120.00 10/28/18 19:37: Urine Urea Nitrogen 482 10/29/18 06:05: WBC 8.8, RBC 3.41 L, Hgb 8.9 L, Hct 26.5 L, MCV 77.7 L, MCH 26.1 L, MCHC 33.6, RDW 15.2 H, RDW Differential 41.8, Plt Count 210, MPV 10.7, Immature Gran % (Auto) 0.300, Neut % (Auto) 70.8 H, Lymph % (Auto) 16.7 L, [place] % (Auto) 10.5 H, Eos % (Auto) 1.4, Baso % (Auto) 0.3, Absolute Neuts (auto) 6.2, Absolute Lymphs (auto) 1.46, Total Counted Not Reportable 10/29/18 06:05: Sodium 125 L, Potassium 4.9, Chloride 91 L, Carbon Dioxide 20.0 L, Anion Gap 14, BUN 105 H*, Creatinine 6.99 H, Estim Creat Clear Calc 5.57, Est GFR (MDRD) Af Amer 7 L, Est GFR (MDRD) Non-Af 6 L, BUN/Creatinine Ratio 15.0, Glucose 103, Calcium 8.0 L 10/29/18 06:05: Sodium Cancelled, Potassium Cancelled, Chloride Cancelled, Carbon Dioxide Cancelled, Anion Gap Cancelled, BUN Cancelled, Creatinine Cancelled, Estim Creat Clear Calc Cancelled, Est GFR (MDRD) Af Amer Cancelled, Est GFR (MDRD) Non-Af Cancelled, BUN/Creatinine Ratio Cancelled, Glucose Cancelled, Calcium Cancelled Diagnostic Data Chest X-Ray 10/28/18 13:20 IMPRESSION: Cardiomegaly with hyperexpansion, diffuse interstitial pattern and large hiatal hernia. No acute finding. Electronically Signed: Shayne Weldon MD at 14:43 EST , Service support , Current Medications Acetaminophen (Tylenol) 650 mg PO Q6H PRN PRN PRN Reason: Mild Pain (1-3)/Temp > 100.7 F Amlodipine Besylate (Norvasc) 10 mg PO DAILY [facility] Betamethasone Valerate (Valisone 0.1% Cream) 1 applic TOPICAL TID PRN; Protocol PRN Reason: RASH/TOPICAL IRRITATION Buspirone HCl (Buspar) 30 mg PO BID [facility] Last Admin: 10/28/18 21:26 Dose: 30 mg Citalopram Hydrobromide (Celexa) 10 mg PO DAILY [facility] Gabapentin (Neurontin) 100 mg PO TIDCM [facility] Last Admin: 10/28/18 17:51 Dose: 100 mg Heparin Sodium (Porcine) (Heparin Na) 5,000 unit SC Q8 [facility] Last Admin: 10/29/18 06:14 Dose: 5,000 unit Sodium Bicarbonate 50 meq/ (Dextrose) 1,050 mls @ 150 mls/hr IV .Q7H [facility] Stop: 10/29/18 18:01 Magnesium Hydroxide (Milk Of Magnesia) 30 ml PO DAILY PRN PRN PRN Reason: Constipation Nutritional Formula (Lactose Free) (Ensure Enlive) 120 ml PO 4X/DAY [facility] Last Admin: 10/28/18 21:31 Dose: 120 ml Ondansetron HCl (Zofran) 4 mg IV Q8H PRN PRN PRN Reason: NAUSEA Sodium Chloride () 5 - 15 ml IV UD PRN PRN Reason: SALINE FLUSH Last Admin: 10/28/18 17:43 Dose: 10 ml Medical Necessity - Tobacco Use Smoking Status: Current every day smoker Tobacco Use: Non-smoker Assessment/Plan All Active Problems (Last Updated 10/28/18 @ 15:31 by Alf Addison DO) Acute kidney injury (Acute) Hyponatremia (Acute) Metabolic acidosis (Acute) 1. ILANA possibly pre-renal from decreased intake, and also possibly medication induced, from Bactrim * has no complaints this morning. Feels well * Cr was 9.28 on admission; has trended down to 6.99 today * on IVF NS @ 100cc/hr; will increase to 250cc/hr o/a of hyponatremia * will monitor kidney function * UA was normal; FeURrea was 33.6, suggesting pre-renal disease * renal USG ordered and is pending * nephrology consulted; awaiting rec's * 2. Acute hypovolemic hyponatremia * Na was 124 on admission; is up to 125 today * no baseline to compare with * will check serum osmolality, urine osmolality and urine sodium * will hydrate at 250cc/hr and check BMP q6hrly; goal is to correct sodium by 8- 10 mmol/L over 24hours * nephrology on board * 3. Acute anion gap acidosis due to uremia * improving. ANion gap was 17 on admission, with bicarb of 15 * bicarb is up to 20 today and anion gap is down to 14. * continue hydrating with IVF and monitor * Also sodium bicarb drip * 4. Stage II decubitus ulcer: present on admission. Wound care consult. 5. Debility due to general medical condition * PT/OT consulted 6. Hypertension: controlled. On amlodipine. Lisinopril and HCTZ on hold o/a of hyponatremia and ILANA 7. Depression: On buspirone and citalopram DVT prophylaxis: heparin Code Visit Inpatient E&M: 48505 [facility] Hosp L3
[2018-10-29 09:56] VITALS: BP 118/68; PULSE 66; RESP 18; TEMP 36.9; O2SAT 97
[2018-10-29] MEDS: busPIRone 15 MG TABLET 30 MG PO ×2 (10:00→21:22)
[2018-10-29] MEDS: Gabapentin 100 MG Capsule PO ×3 (10:00→15:57)
[2018-10-29] MEDS: amLODIPine 10 MG Tablet PO (10:01)
[2018-10-29] MEDS: Citalopram 10 MG Tablet PO (10:01)
[2018-10-29 11:09] LABS: Urine Sodium 42 mmol/L (Not Establ.)
[2018-10-29 11:27] LABS: Osmolality, Urine 300 mOsm/KG
[2018-10-29 12:02] LABS: Osmolality, Serum 286 mOsm/KG (280-301)
[2018-10-29 14:21] VITALS: BP 102/48; PULSE 76; RESP 18; TEMP 36.7; O2SAT 98
--- NOTE | 2018-10-29 15:49 | US_ITS ---
STUDY: RENAL ULTRASOUND - COMPLETE REASON FOR EXAM: Female, 73 years old. Acute kidney injury. TECHNIQUE: Ultrasound evaluation of the kidneys was performed with real-time and static smith-scale imaging. COMPARISON: None. FINDINGS: RIGHT KIDNEY: Normal location of the right kidney, which is normal in size. The right kidney measures 11.0 x 4.1 x 4.6 cm. There is a normal cortex of the right kidney. The renal cortex measures 1.4 cm. There is no right renal mass or cyst. There are no right renal calculi. There is no right hydronephrosis. DISTAL RIGHT URETER: There is non-visualization of the distal right ureter. There is no demonstrated right ureterovesical junction calculus. There is no demonstrated right ureteral jet. LEFT KIDNEY: Normal location of the left kidney, which is normal in size. The left kidney measures 10.9 x 5.6 x 5.2 cm. There is a normal cortex of the left kidney. The renal cortex measures 1.5 cm. There is no left renal mass or cyst. There are no left renal calculi. There is no left hydronephrosis. DISTAL LEFT URETER: There is non-visualization of the distal left ureter. There is no demonstrated left ureterovesical junction calculus. There is no demonstrated left ureteral jet. BLADDER: The urinary bladder has a volume of 482 ml. No post void images or measurements of the urinary bladder were obtained. There is a normal wall thickness of the distended urinary bladder. There is no demonstrated mass within the urinary bladder. There are no demonstrated bladder calculi. US/Kidney and Bladder IMPRESSION: Normal ultrasound of the kidneys and urinary bladder. Post void measurements of the urinary bladder were not obtained. Electronically Signed: Jose Antonio Li MD at 2:57 EST , Service support ,
--- NOTE | 2018-10-29 15:56 | PCM.PN.REN ---
Patient Problems: Active and Suspected Problems (Last Updated 10/28/18 @ 15:31 by Alf Addison DO) Acute kidney injury (Acute) Hyponatremia (Acute) Metabolic acidosis (Acute) Subjective: Patient states she has poor appetite. No nausea no vomiting. No shortness of breath - Physical Exam General: Alert, Oriented x3 HEENT: Atraumatic Oral: Moist Mucosa Neck: Supple, No JVD Lungs: Clear to auscultation, Normal air movement, No rhonchi, No wheeze Cardiovascular: Regular rate, Regular Rhythm, Normal S1, Normal S2 Abdomen: Bowel Sounds Present, Soft, Non Tender Extremities: No clubbing, No cyanosis, No edema Skin: No rashes Musculoskeletal: No Tenderness to Palpation of Joints or Extremities Lymphatic: No Cervical, Supraclavicular, or Inguinal Adenopathy Neurological: Cranial nerves II-XII grossly intact, Neuro grossly intact Psych/Mental Status: Normal Affect Vital Signs Temp Pulse Resp BP Pulse Ox 98.1 F 76 18 102/48 L 98 10/29/18 14:21 10/29/18 14:21 10/29/18 14:21 10/29/18 14:21 10/29/18 14:21 Oxygen Delivery Method Room Air Weight: 91.4 kg Body Mass Index (BMI) 37.0 Intake and Output for Last 24 Hours 10/27/18 10/28/18 10/29/18 23:59 23:59 23:59 Intake Total 1984 1864 / 1864 Output Total 425 / 425 1200 / 1200 Balance 1560 / 1560 664 / 664 Laboratory Tests Past 24 Hrs 10/28/18 10/28/18 10/28/18 19:37 19:37 19:37 WBC RBC Hgb Hct MCV MCH MCHC RDW RDW Differential Plt Count MPV Immature Gran % (Auto) Neut % (Auto) Lymph % (Auto) [place] % (Auto) Eos % (Auto) Baso % (Auto) Absolute Neuts (auto) Absolute Lymphs (auto) Total Counted Eos Smear Total Cells Pending Sodium Potassium Chloride Carbon Dioxide Anion Gap BUN Creatinine Estim Creat Clear Calc Est GFR (MDRD) Af Amer Est GFR (MDRD) Non-Af BUN/Creatinine Ratio Glucose Serum Osmolality Calcium Urine Color Yellow Urine Clarity Clear Urine pH 5.0 Ur Specific [place] 1.020 Urine Protein Negative Urine Glucose (UA) Normal Urine Ketones Negative Urine Occult Blood Negative Urine Nitrite Negative Urine Bilirubin 3 H Urine Urobilinogen Normal Ur Leukocyte Esterase Negative Urine RBC 0 SEEN Urine WBC 0 SEEN Ur Squamous Epith Cells 0-5 SEEN Urine Bacteria 0 SEEN Urine Mucus 0 SEEN Urine Osmolality Ur Random Sodium Urine Creatinine 120.00 Urine Urea Nitrogen 10/28/18 10/29/18 10/29/18 19:37 06:05 06:05 WBC 8.8 RBC 3.41 L Hgb 8.9 L Hct 26.5 L MCV 77.7 L MCH 26.1 L MCHC 33.6 RDW 15.2 H RDW Differential 41.8 Plt Count 210 MPV 10.7 Immature Gran % (Auto) 0.300 Neut % (Auto) 70.8 H Lymph % (Auto) 16.7 L [place] % (Auto) 10.5 H Eos % (Auto) 1.4 Baso % (Auto) 0.3 Absolute Neuts (auto) 6.2 Absolute Lymphs (auto) 1.46 Total Counted Not Reportable Eos Smear Total Cells Sodium 125 L Potassium 4.9 Chloride 91 L Carbon Dioxide 20.0 L Anion Gap 14 BUN 105 H* Creatinine 6.99 H Estim Creat Clear Calc 5.57 Est GFR (MDRD) Af Amer 7 L Est GFR (MDRD) Non-Af 6 L BUN/Creatinine Ratio 15.0 Glucose 103 Serum Osmolality Calcium 8.0 L Urine Color Urine Clarity Urine pH Ur Specific [place] Urine Protein Urine Glucose (UA) Urine Ketones Urine Occult Blood Urine Nitrite Urine Bilirubin Urine Urobilinogen Ur Leukocyte Esterase Urine RBC Urine WBC Ur Squamous Epith Cells Urine Bacteria Urine Mucus Urine Osmolality Ur Random Sodium Urine Creatinine Urine Urea Nitrogen 482 10/29/18 10/29/18 10/29/18 06:05 10:40 10:40 WBC RBC Hgb Hct MCV MCH MCHC RDW RDW Differential Plt Count MPV Immature Gran % (Auto) Neut % (Auto) Lymph % (Auto) [place] % (Auto) Eos % (Auto) Baso % (Auto) Absolute Neuts (auto) Absolute Lymphs (auto) Total Counted Eos Smear Total Cells Sodium Cancelled Potassium Cancelled Chloride Cancelled Carbon Dioxide Cancelled Anion Gap Cancelled BUN Cancelled Creatinine Cancelled Estim Creat Clear Calc Cancelled Est GFR (MDRD) Af Amer Cancelled Est GFR (MDRD) Non-Af Cancelled BUN/Creatinine Ratio Cancelled Glucose Cancelled Serum Osmolality Calcium Cancelled Urine Color Urine Clarity Urine pH Ur Specific [place] Urine Protein Urine Glucose (UA) Urine Ketones Urine Occult Blood Urine Nitrite Urine Bilirubin Urine Urobilinogen Ur Leukocyte Esterase Urine RBC Urine WBC Ur Squamous Epith Cells Urine Bacteria Urine Mucus Urine Osmolality 300 Ur Random Sodium 42 Urine Creatinine Urine Urea Nitrogen 10/29/18 11:16 WBC RBC Hgb Hct MCV MCH MCHC RDW RDW Differential Plt Count MPV Immature Gran % (Auto) Neut % (Auto) Lymph % (Auto) [place] % (Auto) Eos % (Auto) Baso % (Auto) Absolute Neuts (auto) Absolute Lymphs (auto) Total Counted Eos Smear Total Cells Sodium Potassium Chloride Carbon Dioxide Anion Gap BUN Creatinine Estim Creat Clear Calc Est GFR (MDRD) Af Amer Est GFR (MDRD) Non-Af BUN/Creatinine Ratio Glucose Serum Osmolality 286 Calcium Urine Color Urine Clarity Urine pH Ur Specific [place] Urine Protein Urine Glucose (UA) Urine Ketones Urine Occult Blood Urine Nitrite Urine Bilirubin Urine Urobilinogen Ur Leukocyte Esterase Urine RBC Urine WBC Ur Squamous Epith Cells Urine Bacteria Urine Mucus Urine Osmolality Ur Random Sodium Urine Creatinine Urine Urea Nitrogen Medical Necessity - Tobacco Use Smoking Status: Current every day smoker Tobacco Use: Non-smoker Assessment/Plan All Active Problems (Last Updated 10/28/18 @ 15:31 by Alf Addison DO) Acute kidney injury (Acute) Hyponatremia (Acute) Metabolic acidosis (Acute) 1-acute kidney injury. Unknown if the patient has chronic kidney disease. There is no BMP available in the system from before. Acute kidney injury is most probably from Bactrim and decreased oral intake. Creatinine peaked at 9 mg/dL presentation. Kidney function is improving with IV fluid. Please continue IV fluid at 150 cc/h No indication for hemodialysis. Renal ultrasound still pending Continue holding BIRGIT inhibitor Check renal function a.m. 2-Metabolic acidosis. Most probably from acute kidney injury. Improved. Continue sodium bicarb drip Check bicarb level in a.m.. 3-hyponatremia. Most probably from dehydration. Sodium level today 125. I will switch sodium bicarb drip to isotonic sodium bicarb drip Thank you for the consult. Renal team will continue to follow
[2018-10-29 21:10] VITALS: BP 97/52; PULSE 80; RESP 18; TEMP 36.8; O2SAT 94
[2018-10-29 21:20] VITALS: PULSE 80; RESP 18; O2SAT 94
[2018-10-30 02:00] VITALS: BP 134/64; PULSE 74; RESP 18; TEMP 36.8; O2SAT 95
[2018-10-30] MEDS: Ondansetron 4 MG/2 ML Vial IV ×2 (02:13→10:01)
[2018-10-30 02:15] VITALS: PULSE 74
[2018-10-30] MEDS: Heparin Injection (Vial) 5,000 UNIT/ML VIAL 5000 UNIT SC ×2 (05:48→22:48)
[2018-10-30 06:24] LABS: Absolute Lymphocyte Count 1.03 X10^3/ul (0.83-4.51); Absolute Neutrophil Count 4.1 X10^3/uL (2.0-7.7); Basophil# 0.01 X10^3/uL; Basophil% 0.2 % (0-1); Eosinophil# 0.07 X10^3/uL; Eosinophils% 1.2 % (0-5); Hematocrit 25.1 % (37-47); Hemoglobin 8.5 g/dl (12.0-15.0); Lymphocyte # 1.03 X10^3/ul (4.0); Lymphocyte % 17.1 % (19-41); Mean Corp Hgb Conc 33.9 g/gl (32-36); Mean Corpuscular Hgb 26.2 pg (27.0-32.0); Mean Corpuscular Volume 77.5 fL (81-99); Mean Platelet Vol. 10.3 fl (6.2-12.0); Monocyte# 0.78 X10^3/uL; Monocyte% 12.9 % (0-10); Neutrophil # 4.14 X10^3/uL (2.7-7.7); Neutrophil % 68.4 % (47-70); Platelet Count 190 K/mm3 (150-450); RBC Distribution Width SD 41.1 fl (35.1-43.9); Red Blood Count 3.24 M/mm3 (4.2-5.4)
[2018-10-30 06:29] LABS: Anion Gap 11 (5-15); BUN 68 mg/dL (7-18); BUN/Creat Ratio 21.9 RATIO (10-20); Calcium,Total 7.9 mg/dL (8.5-10.1); Chloride 84 mmol/L (98-107); EST Glomerular Filtration Rate 16 mL/min (>60); Est Glom Filt Rate - Afr Amer 19 mL/min (>60); Estimated Creatinine Clearance 12.56 ml/min; Glucose 123 mg/dL (74-106); Sodium Level 126 mmol/L (136-145)
[2018-10-30 07:09] LABS: POSITIVE COUNT NO; POSITIVE DIFFERENTIAL NO; POSITIVE MORPHOLOGY NO
[2018-10-30] MEDS: Citalopram 10 MG Tablet PO (07:58)
[2018-10-30] MEDS: Gabapentin 100 MG Capsule PO ×3 (07:58→17:00)
[2018-10-30] MEDS: busPIRone 15 MG TABLET 30 MG PO ×2 (07:58→22:48)
[2018-10-30 08:00] VITALS: BP 110/50; PULSE 74; RESP 18; TEMP 36.6; O2SAT 95
--- NOTE | 2018-10-30 10:05 | PCM.PN.HOSP ---
Patient Problems: Active and Suspected Problems (Last Updated 10/28/18 @ 15:31 by Alf Addison DO) Acute kidney injury (Acute) Hyponatremia (Acute) Metabolic acidosis (Acute) Subjective: Patient is a 73-year-old lady admitted with progressive generalized weakness. Patient was found to have acute kidney injury with creatinine greater than 9. She had apparently been prescribed Bactrim for an upper respiratory tract infection. Objective: GENERAL: cooperative HEENT: Atraumatic; moist oral mucosa EYES; Anicteric, Normal Conjunctiva NECK; supple, normal thyroid, no distended JVD. RESPIRATORY: Diminished to auscultation bilaterally, CARDIOVASCULAR: Regular S1 S2, no audible murmurs GI: soft, non-tender, normoactive bowel sounds, : No Renal angle tenderness; EXTREMITIES: No edema, no clubbing, no cyanosis. MUSCULOSKELETAL: No Joint Tenderness; no muscle waisting NEURO: Awake; no lateralizing signs. SKIN: No Rash PSYCH; Normal affect Vitals/I&O's: Vital Signs Temp Pulse Resp BP Pulse Ox 97.8 F 74 18 110/50 L 95 10/30/18 08:00 10/30/18 08:00 10/30/18 08:00 10/30/18 08:00 10/30/18 08:00 Oxygen Delivery Method Room Air Weight: 91.4 kg Body Mass Index (BMI) 37.0 Intake and Output for Last 24 Hours 10/28/18 10/29/18 10/30/18 23:59 23:59 23:59 Intake Total 1984 / 1984 1864 / 1864 2633 / 2633 Output Total 425 / 425 1200 / 1200 Balance 1560 / 1560 664 / 664 2633 / 2633 Laboratory Results 10/29/18 10:40: Ur Random Sodium 42 10/29/18 10:40: Urine Osmolality 300 10/29/18 11:16: Serum Osmolality 286 10/30/18 05:30: WBC 6.0, RBC 3.24 L, Hgb 8.5 L, Hct 25.1 L, MCV 77.5 L, MCH 26.2 L, MCHC 33.9, RDW 15.0 H, RDW Differential 41.1, Plt Count 190, MPV 10.3, Immature Gran % (Auto) 0.200, Neut % (Auto) 68.4, Lymph % (Auto) 17.1 L, [place] % (Auto) 12.9 H, Eos % (Auto) 1.2, Baso % (Auto) 0.2, Absolute Neuts (auto) 4.1, Absolute Lymphs (auto) 1.03, Total Counted Not Reportable 10/30/18 05:30: Sodium 126 L, Potassium 4.0, Chloride 84 L, Carbon Dioxide 31.0, Anion Gap 11, BUN 68 H, Creatinine 3.10 H, Estim Creat Clear Calc 12.56, Est GFR (MDRD) Af Amer 19 L, Est GFR (MDRD) Non-Af 16 L, BUN/Creatinine Ratio 21.9 H, Glucose 123 H, Calcium 7.9 L Current Medications Acetaminophen (Tylenol) 650 mg PO Q6H PRN PRN PRN Reason: Mild Pain (1-3)/Temp > 100.7 F Amlodipine Besylate (Norvasc) 10 mg PO DAILY [facility] Last Admin: 10/30/18 07:58 Dose: Not Given Betamethasone Valerate (Valisone 0.1% Cream) 1 applic TOPICAL TID PRN; Protocol PRN Reason: RASH/TOPICAL IRRITATION Buspirone HCl (Buspar) 30 mg PO BID [facility] Last Admin: 10/30/18 07:58 Dose: 30 mg Citalopram Hydrobromide (Celexa) 10 mg PO DAILY [facility] Last Admin: 10/30/18 07:58 Dose: 10 mg Gabapentin (Neurontin) 100 mg PO TIDCM [facility] Last Admin: 10/30/18 07:58 Dose: 100 mg Heparin Sodium (Porcine) (Heparin Na) 5,000 unit SC Q8 [facility] Last Admin: 10/30/18 05:48 Dose: 5,000 unit Sodium Bicarbonate 150 meq/ (Dextrose) 1,150 mls @ 150 mls/hr IV .Q7H40M [facility] Last Admin: 10/30/18 07:57 Dose: 150 mls/hr Magnesium Hydroxide (Milk Of Magnesia) 30 ml PO DAILY PRN PRN PRN Reason: Constipation Nutritional Formula (Lactose Free) (Ensure Enlive) 120 ml PO 4X/DAY [facility] Last Admin: 10/30/18 07:58 Dose: 120 ml Ondansetron HCl (Zofran) 4 mg IV Q8H PRN PRN PRN Reason: NAUSEA Last Admin: 10/30/18 10:01 Dose: 4 mg Sodium Chloride () 5 - 15 ml IV UD PRN PRN Reason: SALINE FLUSH Last Admin: 10/28/18 17:43 Dose: 10 ml Medical Necessity - Tobacco Use Smoking Status: Current every day smoker Tobacco Use: Non-smoker Assessment/Plan All Active Problems (Last Updated 10/28/18 @ 15:31 by Alf Addison DO) Acute kidney injury (Acute) Hyponatremia (Acute) Metabolic acidosis (Acute) Patient is a 73-year-old lady admitted with progressive generalized weakness. Patient was found to have acute kidney injury with creatinine greater than 9. She had apparently been prescribed Bactrim for an upper respiratory tract infection. 1. Acute kidney injury multifactorial from hypovolemia as well as medication induced. Patient on fluids with subsequent monitoring of electrolyte kidney function still remains significantly elevated. Patient has also been seen in consultation by nephrology 2. Acute hypovolemic hyponatremia being resuscitated with IV fluid 3. Anion gap acidosis secondary to AK I patient was managed on bicarb drip 4. Hypertension continue with patient home amlodipine. Lisinopril and HCTZ discontinued in view of hyponatremia and AK I 5. Depression with anxiety patient is on citalopram and buspirone 6. Stage II decubitus ulcer present on admission 7. Physical debility requested for PT OT eval 8. DVT prophylaxis SC heparin Clinical Impression(s) from Imaging Studies Chest X-Ray 10/28/18 13:20 IMPRESSION: Cardiomegaly with hyperexpansion, diffuse interstitial pattern and large hiatal hernia. No acute finding. Electronically Signed: Shayne Weldon MD at 14:43 EST , Service support , Renal Ultrasound 10/29/18 15:49 IMPRESSION: Normal ultrasound of the kidneys and urinary bladder. Post void measurements of the urinary bladder were not obtained. Electronically Signed: JoseA ntonio Li MD at 2:57 EST , Service support , Active Medications Acetaminophen (Tylenol) 650 mg PO Q6H PRN PRN PRN Reason: Mild Pain (1-3)/Temp > 100.7 F Amlodipine Besylate (Norvasc) 10 mg PO DAILY [facility] Last Admin: 10/30/18 07:58 Dose: Not Given Betamethasone Valerate (Valisone 0.1% Cream) 1 applic TOPICAL TID PRN; Protocol PRN Reason: RASH/TOPICAL IRRITATION Buspirone HCl (Buspar) 30 mg PO BID [facility] Last Admin: 10/30/18 07:58 Dose: 30 mg Citalopram Hydrobromide (Celexa) 10 mg PO DAILY [facility] Last Admin: 10/30/18 07:58 Dose: 10 mg Gabapentin (Neurontin) 100 mg PO TIDCM [facility] Last Admin: 10/30/18 07:58 Dose: 100 mg Heparin Sodium (Porcine) (Heparin Na) 5,000 unit SC Q8 [facility] Last Admin: 10/30/18 05:48 Dose: 5,000 unit Sodium Bicarbonate 150 meq/ (Dextrose) 1,150 mls @ 150 mls/hr IV .Q7H40M [facility] Last Admin: 10/30/18 07:57 Dose: 150 mls/hr Magnesium Hydroxide (Milk Of Magnesia) 30 ml PO DAILY PRN PRN PRN Reason: Constipation Nutritional Formula (Lactose Free) (Ensure Enlive) 120 ml PO 4X/DAY [facility] Last Admin: 10/30/18 07:58 Dose: 120 ml Ondansetron HCl (Zofran) 4 mg IV Q8H PRN PRN PRN Reason: NAUSEA Last Admin: 10/30/18 10:01 Dose: 4 mg Sodium Chloride () 5 - 15 ml IV UD PRN PRN Reason: SALINE FLUSH Last Admin: 10/28/18 17:43 Dose: 10 ml Code Visit Inpatient E&M: 09333 Subs Hosp L3
--- NOTE | 2018-10-30 10:09 | PN_ITS ---
Patient Problems: Active and Suspected Problems (Last Updated 10/28/18 @ 15:31 by Alf Addison DO) Acute kidney injury (Acute) Hyponatremia (Acute) Metabolic acidosis (Acute) Subjective: Patient is a 73-year-old lady admitted with progressive generalized weakness. Patient was found to have acute kidney injury with creatinine greater than 9. She had apparently been prescribed Bactrim for an upper respiratory tract infection. Objective: GENERAL: cooperative HEENT: Atraumatic; moist oral mucosa EYES; Anicteric, Normal Conjunctiva NECK; supple, normal thyroid, no distended JVD. RESPIRATORY: Diminished to auscultation bilaterally, CARDIOVASCULAR: Regular S1 S2, no audible murmurs GI: soft, non-tender, normoactive bowel sounds, : No Renal angle tenderness; EXTREMITIES: No edema, no clubbing, no cyanosis. MUSCULOSKELETAL: No Joint Tenderness; no muscle waisting NEURO: Awake; no lateralizing signs. SKIN: No Rash PSYCH; Normal affect Vitals/I&O's: Vital Signs Temp Pulse Resp BP Pulse Ox 97.8 F 74 18 110/50 L 95 10/30/18 08:00 10/30/18 08:00 10/30/18 08:00 10/30/18 08:00 10/30/18 08:00 Oxygen Delivery Method Room Air Weight: 91.4 kg Body Mass Index (BMI) 37.0 Intake and Output for Last 24 Hours 10/28/18 10/29/18 10/30/18 23:59 23:59 23:59 Intake Total 1984 / 1984 1864 / 1864 2633 / 2633 Output Total 425 / 425 1200 / 1200 Balance 1560 / 1560 664 / 664 2633 / 2633 Laboratory Results 10/29/18 10:40: Ur Random Sodium 42 10/29/18 10:40: Urine Osmolality 300 10/29/18 11:16: Serum Osmolality 286 10/30/18 05:30: WBC 6.0, RBC 3.24 L, Hgb 8.5 L, Hct 25.1 L, MCV 77.5 L, MCH 26.2 L, MCHC 33.9, RDW 15.0 H, RDW Differential 41.1, Plt Count 190, MPV 10.3, Immature Gran % (Auto) 0.200, Neut % (Auto) 68.4, Lymph % (Auto) 17.1 L, [place] % (Auto) 12.9 H, Eos % (Auto) 1.2, Baso % (Auto) 0.2, Absolute Neuts (auto) 4.1, Absolute Lymphs (auto) 1.03, Total Counted Not Reportable 10/30/18 05:30: Sodium 126 L, Potassium 4.0, Chloride 84 L, Carbon Dioxide 31.0, Anion Gap 11, BUN 68 H, Creatinine 3.10 H, Estim Creat Clear Calc 12.56, Est GFR (MDRD) Af Amer 19 L, Est GFR (MDRD) Non-Af 16 L, BUN/Creatinine Ratio 21.9 H, Glucose 123 H, Calcium 7.9 L Current Medications Acetaminophen (Tylenol) 650 mg PO Q6H PRN PRN PRN Reason: Mild Pain (1-3)/Temp > 100.7 F Amlodipine Besylate (Norvasc) 10 mg PO DAILY [facility] Last Admin: 10/30/18 07:58 Dose: Not Given Betamethasone Valerate (Valisone 0.1% Cream) 1 applic TOPICAL TID PRN; Protocol PRN Reason: RASH/TOPICAL IRRITATION Buspirone HCl (Buspar) 30 mg PO BID [facility] Last Admin: 10/30/18 07:58 Dose: 30 mg Citalopram Hydrobromide (Celexa) 10 mg PO DAILY [facility] Last Admin: 10/30/18 07:58 Dose: 10 mg Gabapentin (Neurontin) 100 mg PO TIDCM [facility] Last Admin: 10/30/18 07:58 Dose: 100 mg Heparin Sodium (Porcine) (Heparin Na) 5,000 unit SC Q8 [facility] Last Admin: 10/30/18 05:48 Dose: 5,000 unit Sodium Bicarbonate 150 meq/ (Dextrose) 1,150 mls @ 150 mls/hr IV .Q7H40M [facility] Last Admin: 10/30/18 07:57 Dose: 150 mls/hr Magnesium Hydroxide (Milk Of Magnesia) 30 ml PO DAILY PRN PRN PRN Reason: Constipation Nutritional Formula (Lactose Free) (Ensure Enlive) 120 ml PO 4X/DAY [facility] Last Admin: 10/30/18 07:58 Dose: 120 ml Ondansetron HCl (Zofran) 4 mg IV Q8H PRN PRN PRN Reason: NAUSEA Last Admin: 10/30/18 10:01 Dose: 4 mg Sodium Chloride () 5 - 15 ml IV UD PRN PRN Reason: SALINE FLUSH Last Admin: 10/28/18 17:43 Dose: 10 ml Medical Necessity - Tobacco Use Smoking Status: Current every day smoker Tobacco Use: Non-smoker Assessment/Plan All Active Problems (Last Updated 10/28/18 @ 15:31 by Alf Addison DO) Acute kidney injury (Acute) Hyponatremia (Acute) Metabolic acidosis (Acute) Patient is a 73-year-old lady admitted with progressive generalized weakness. Patient was found to have acute kidney injury with creatinine greater than 9. She had apparently been prescribed Bactrim for an upper respiratory tract infection. 1. Acute kidney injury multifactorial from hypovolemia as well as medication induced. Patient on fluids with subsequent monitoring of electrolyte kidney function still remains significantly elevated. Patient has also been seen in consultation by nephrology 2. Acute hypovolemic hyponatremia being resuscitated with IV fluid 3. Anion gap acidosis secondary to AK I patient was managed on bicarb drip 4. Hypertension continue with patient home amlodipine. Lisinopril and HCTZ discontinued in view of hyponatremia and AK I 5. Depression with anxiety patient is on citalopram and buspirone 6. Stage II decubitus ulcer present on admission 7. Physical debility requested for PT OT eval 8. DVT prophylaxis SC heparin Clinical Impression(s) from Imaging Studies Chest X-Ray 10/28/18 13:20 IMPRESSION: Cardiomegaly with hyperexpansion, diffuse interstitial pattern and large hiatal hernia. No acute finding. Electronically Signed: Shayne Weldon MD at 14:43 EST , Service support , Renal Ultrasound 10/29/18 15:49 IMPRESSION: Normal ultrasound of the kidneys and urinary bladder. Post void measurements of the urinary bladder were not obtained. Electronically Signed: Jose Antonio Li MD at 2:57 EST , Service support , Active Medications Acetaminophen (Tylenol) 650 mg PO Q6H PRN PRN PRN Reason: Mild Pain (1-3)/Temp > 100.7 F Amlodipine Besylate (Norvasc) 10 mg PO DAILY [facility] Last Admin: 10/30/18 07:58 Dose: Not Given Betamethasone Valerate (Valisone 0.1% Cream) 1 applic TOPICAL TID PRN; Protocol PRN Reason: RASH/TOPICAL IRRITATION Buspirone HCl (Buspar) 30 mg PO BID [facility] Last Admin: 10/30/18 07:58 Dose: 30 mg Citalopram Hydrobromide (Celexa) 10 mg PO DAILY [facility] Last Admin: 10/30/18 07:58 Dose: 10 mg Gabapentin (Neurontin) 100 mg PO TIDCM [facility] Last Admin: 10/30/18 07:58 Dose: 100 mg Heparin Sodium (Porcine) (Heparin Na) 5,000 unit SC Q8 [facility] Last Admin: 10/30/18 05:48 Dose: 5,000 unit Sodium Bicarbonate 150 meq/ (Dextrose) 1,150 mls @ 150 mls/hr IV .Q7H40M [facility] Last Admin: 10/30/18 07:57 Dose: 150 mls/hr Magnesium Hydroxide (Milk Of Magnesia) 30 ml PO DAILY PRN PRN PRN Reason: Constipation Nutritional Formula (Lactose Free) (Ensure Enlive) 120 ml PO 4X/DAY [facility] Last Admin: 10/30/18 07:58 Dose: 120 ml Ondansetron HCl (Zofran) 4 mg IV Q8H PRN PRN PRN Reason: NAUSEA Last Admin: 10/30/18 10:01 Dose: 4 mg Sodium Chloride () 5 - 15 ml IV UD PRN PRN Reason: SALINE FLUSH Last Admin: 10/28/18 17:43 Dose: 10 ml Code Visit Inpatient E&M: 97085 Subs Hosp L3
--- NOTE | 2018-10-30 11:00 | CASEMGMT ---
MALIK MUHAMMAD Face to Face with patient for initial transition planning/care coordination assessment. RN SABINA introduced self and role at [facility]. Patient lying in bed, alert and oriented. Patient willing to participate in assessment and is able to answer all questions appropriately. Care providers, pharmacy, and demographics verified. Patient wishes to discharge home, denies need for home health at this time. Patient states she has no further needs or concerns at this time. CM to follow for discharge planning needs that may arise. PCP: Reuben Martinez Specialists: None Preferred Pharmacy:[facility] Insurance: [employer] [facility] Prescription Benefit: yes Living Will/HPOA: No LNOK: Living Arrangements: Patient lives with in apartment with no steps to enter. Patient is independent at home. Transportation: DME/HHC: Patient states she has a cane, denied further needs Disposition Plan: Patient to discharge home with family support and follow-up plans in place. Liss [place], RN, CM
--- NOTE | 2018-10-30 11:07 | PCM.PN.REN ---
Patient Problems: Active and Suspected Problems (Last Updated 10/28/18 @ 15:31 by Alf Addison DO) Acute kidney injury (Acute) Hyponatremia (Acute) Metabolic acidosis (Acute) Subjective: Still has no appetite. denied nausea/vomiting No SOB - Physical Exam General: Alert, Oriented x3 HEENT: Atraumatic Oral: Moist Mucosa Neck: Supple, No JVD, Negative Carotid Bruits Lungs: Clear to auscultation, Normal air movement, No rhonchi, No wheeze Cardiovascular: Regular rate, Regular Rhythm, Normal S1, Normal S2 Abdomen: Bowel Sounds Present, Soft, Non Tender Extremities: No clubbing, No cyanosis, No edema Skin: No rashes Musculoskeletal: No Tenderness to Palpation of Joints or Extremities Lymphatic: No Cervical, Supraclavicular, or Inguinal Adenopathy Neurological: Cranial nerves II-XII grossly intact, Neuro grossly intact Psych/Mental Status: Normal Affect Vital Signs Temp Pulse Resp BP Pulse Ox 97.8 F 74 18 110/50 L 95 10/30/18 08:00 10/30/18 08:00 10/30/18 08:00 10/30/18 08:00 10/30/18 08:00 Oxygen Delivery Method Room Air Weight: 91.4 kg Body Mass Index (BMI) 37.0 Intake and Output for Last 24 Hours 10/28/18 10/29/18 10/30/18 23:59 23:59 23:59 Intake Total 1984 / 1984 1864 / 1864 2633 / 2633 Output Total 425 / 425 1200 / 1200 Balance 1560 / 1560 664 / 664 2633 / 2633 Laboratory Tests Past 24 Hrs 10/29/18 10/29/18 10/29/18 10:40 10:40 11:16 WBC RBC Hgb Hct MCV MCH MCHC RDW RDW Differential Plt Count MPV Immature Gran % (Auto) Neut % (Auto) Lymph % (Auto) [place] % (Auto) Eos % (Auto) Baso % (Auto) Absolute Neuts (auto) Absolute Lymphs (auto) Total Counted Sodium Potassium Chloride Carbon Dioxide Anion Gap BUN Creatinine Estim Creat Clear Calc Est GFR (MDRD) Af Amer Est GFR (MDRD) Non-Af BUN/Creatinine Ratio Glucose Serum Osmolality 286 Calcium Urine Osmolality 300 Ur Random Sodium 42 10/30/18 10/30/18 05:30 05:30 WBC 6.0 RBC 3.24 L Hgb 8.5 L Hct 25.1 L MCV 77.5 L MCH 26.2 L MCHC 33.9 RDW 15.0 H RDW Differential 41.1 Plt Count 190 MPV 10.3 Immature Gran % (Auto) 0.200 Neut % (Auto) 68.4 Lymph % (Auto) 17.1 L [place] % (Auto) 12.9 H Eos % (Auto) 1.2 Baso % (Auto) 0.2 Absolute Neuts (auto) 4.1 Absolute Lymphs (auto) 1.03 Total Counted Not Reportable Sodium 126 L Potassium 4.0 Chloride 84 L Carbon Dioxide 31.0 Anion Gap 11 BUN 68 H Creatinine 3.10 H Estim Creat Clear Calc 12.56 Est GFR (MDRD) Af Amer 19 L Est GFR (MDRD) Non-Af 16 L BUN/Creatinine Ratio 21.9 H Glucose 123 H Serum Osmolality Calcium 7.9 L Urine Osmolality Ur Random Sodium Medical Necessity - Tobacco Use Smoking Status: Current every day smoker Tobacco Use: Non-smoker Assessment/Plan All Active Problems (Last Updated 10/28/18 @ 15:31 by Alf Addison DO) Acute kidney injury (Acute) Hyponatremia (Acute) Metabolic acidosis (Acute) 1-acute kidney injury. Unknown if the patient has chronic kidney disease. There is no BMP available in the system from before. Acute kidney injury is most probably from Bactrim and decreased oral intake. Creatinine peaked at 9 mg/dL at presentation. Kidney function is improving with IV fluid. Please continue IV fluid at 125 cc/h since the patient has poor appetite No indication for hemodialysis. Renal ultrasound is normal Continue holding BIRGIT inhibitor Check renal function a.m. 2-Metabolic acidosis. Most probably from acute kidney injury. resolved. d/c bicar drip 3-hyponatremia. Most probably from dehydration. improving slowly. Switch IVF to NS. Thank you for the consult. Renal team will continue to follow
[2018-10-30] MEDS: 0.9% Normal Saline 1,000 ML 125 ML IV ×2 (11:54→20:36)
[2018-10-30] MEDS: proMETHazine 25 MG/ML Syringe 12.5 MG IM (14:26)
[2018-10-30 14:28] VITALS: BP 118/75; PULSE 67; RESP 18; TEMP 36.6; O2SAT 96
[2018-10-30 19:32] VITALS: BP 115/57; PULSE 82; RESP 20; TEMP 37.2; O2SAT 93
[2018-10-30 19:44] VITALS: PULSE 77
[2018-10-31 01:35] VITALS: BP 120/66; PULSE 83; RESP 20; TEMP 36.9; O2SAT 90
[2018-10-31 03:55] VITALS: BP 132/58; PULSE 84; RESP 20; TEMP 37; O2SAT 93
[2018-10-31] MEDS: 0.9% Normal Saline 1,000 ML 125 ML IV (04:05)
[2018-10-31 06:18] LABS: Hematocrit 26.3 % (37-47); Hemoglobin 8.5 g/dl (12.0-15.0); Mean Corp Hgb Conc 32.3 g/gl (32-36); Mean Corpuscular Hgb 26.6 pg (27.0-32.0); Mean Corpuscular Volume 82.2 fL (81-99); Mean Platelet Vol. 10.1 fl (6.2-12.0); Platelet Count 190 K/mm3 (150-450); RBC Distribution Width CV 15.2 % (11.6-14.6); RBC Distribution Width SD 43.5 fl (35.1-43.9); Scan Indicated on CBC? Y/N NO; White Blood Count 6.3 K/mm3 (4.4-11.0)
[2018-10-31 06:20] LABS: Anion Gap 7 (5-15); BUN 38 mg/dL (7-18); BUN/Creat Ratio 24.2 RATIO (10-20); Calcium,Total 8.1 mg/dL (8.5-10.1); Chloride 95 mmol/L (98-107); Creatinine, Serum 1.57 mg/dL (0.55-1.02); EST Glomerular Filtration Rate 34 mL/min (>60); Est Glom Filt Rate - Afr Amer 42 mL/min (>60); Glucose 104 mg/dL (74-106); Magnesium 2.1 mg/dL (1.6-2.6); Potassium 4.3 mmol/L (3.5-5.1); Sodium Level 133 mmol/L (136-145)
[2018-10-31] MEDS: Heparin Injection (Vial) 5,000 UNIT/ML VIAL 5000 UNIT SC (06:41)
--- NOTE | 2018-10-31 07:37 | PCM.PN.HOSP ---
Patient Problems: Active and Suspected Problems (Last Updated 10/28/18 @ 15:31 by Alf Addison DO) Acute kidney injury (Acute) Hyponatremia (Acute) Metabolic acidosis (Acute) Subjective: Patient seen kidney function improved did discuss discharge with patient Objective: GENERAL: cooperative HEENT: Atraumatic; moist oral mucosa EYES; Anicteric, Normal Conjunctiva NECK; supple, normal thyroid, no distended JVD. RESPIRATORY: Diminished to auscultation bilaterally, CARDIOVASCULAR: Regular S1 S2, no audible murmurs GI: soft, non-tender, normoactive bowel sounds, : No Renal angle tenderness; EXTREMITIES: No edema, no clubbing, no cyanosis. MUSCULOSKELETAL: No Joint Tenderness; no muscle waisting NEURO: Awake; no lateralizing signs. SKIN: No Rash PSYCH; Normal affect Vitals/I&O's: Vital Signs Temp Pulse Resp BP Pulse Ox 98.6 F 84 20 H 132/58 H 93 10/31/18 03:55 10/31/18 03:55 10/31/18 03:55 10/31/18 03:55 10/31/18 03:55 Oxygen Delivery Method Room Air Weight: 91.4 kg Body Mass Index (BMI) 37.0 Intake and Output for Last 24 Hours 10/29/18 10/30/18 10/31/18 23:59 23:59 23:59 Intake Total 1864 / 1864 5472 / 5472 655 / 655 Output Total 1200 / 1200 600 / 600 1100 / 1100 Balance 664 / 664 4872 / 4872 -445 / -445 Microbiology Past 72 Hours 10/28/18 13:33 Blood Culture (Wb) - Right Hand Blood Culture - Preliminary No growth in 48 hours. 10/28/18 13:30 Blood Culture (Wb) - Anticubital Left Blood Culture - Preliminary No growth in 48 hours. 10/28/18 19:37 Urine, Clean Catch Urine Culture - Preliminary Mixed Gram Positive Organisms Laboratory Results 10/31/18 05:26: WBC 6.3, RBC 3.20 L, Hgb 8.5 L, Hct 26.3 L, MCV 82.2, MCH 26.6 L, MCHC 32.3, RDW 15.2 H, RDW Differential 43.5, Plt Count 190, MPV 10.1 10/31/18 05:26: Sodium 133 L, Potassium 4.3, Chloride 95 L, Carbon Dioxide 31.0, Anion Gap 7, BUN 38 H, Creatinine 1.57 H, Estim Creat Clear Calc 24.80, Est GFR (MDRD) Af Amer 42 L, Est GFR (MDRD) Non-Af 34 L, BUN/Creatinine Ratio 24.2 H, Glucose 104, Calcium 8.1 L, Magnesium 2.1 Current Medications Acetaminophen (Tylenol) 650 mg PO Q6H PRN PRN PRN Reason: Mild Pain (1-3)/Temp > 100.7 F Amlodipine Besylate (Norvasc) 10 mg PO DAILY [facility] Last Admin: 10/30/18 07:58 Dose: Not Given Betamethasone Valerate (Valisone 0.1% Cream) 1 applic TOPICAL TID PRN; Protocol PRN Reason: RASH/TOPICAL IRRITATION Buspirone HCl (Buspar) 30 mg PO BID [facility] Last Admin: 10/30/18 22:48 Dose: 30 mg Citalopram Hydrobromide (Celexa) 10 mg PO DAILY [facility] Last Admin: 10/30/18 07:58 Dose: 10 mg Gabapentin (Neurontin) 100 mg PO TIDCM [facility] Last Admin: 10/30/18 17:00 Dose: 100 mg Heparin Sodium (Porcine) (Heparin Na) 5,000 unit SC Q8 [facility] Last Admin: 10/31/18 06:41 Dose: 5,000 unit Sodium Chloride () 1,000 mls @ 125 mls/hr IV .Q8H [facility] Last Admin: 10/31/18 04:05 Dose: 125 mls/hr Magnesium Hydroxide (Milk Of Magnesia) 30 ml PO DAILY PRN PRN PRN Reason: Constipation Nutritional Formula (Lactose Free) (Ensure Enlive) 120 ml PO 4X/DAY [facility] Last Admin: 10/30/18 22:47 Dose: Not Given Ondansetron HCl (Zofran) 4 mg IV Q8H PRN PRN PRN Reason: NAUSEA Last Admin: 10/30/18 10:01 Dose: 4 mg Promethazine HCl (Phenergan) 12.5 mg IM Q4H PRN PRN PRN Reason: NAUSEA/VOMITING Last Admin: 10/30/18 14:26 Dose: 12.5 mg Sodium Chloride () 5 - 15 ml IV UD PRN PRN Reason: SALINE FLUSH Last Admin: 10/28/18 17:43 Dose: 10 ml Medical Necessity - Tobacco Use Smoking Status: Current every day smoker Tobacco Use: Non-smoker Assessment/Plan All Active Problems (Last Updated 10/28/18 @ 15:31 by Alf Addison DO) Acute kidney injury (Acute) Hyponatremia (Acute) Metabolic acidosis (Acute) Patient is a 73-year-old lady admitted with progressive generalized weakness. Patient was found to have acute kidney injury with creatinine greater than 9. She had apparently been prescribed Bactrim for an upper respiratory tract infection. 1. Acute kidney injury multifactorial from hypovolemia as well as medication induced. Patient on fluids with subsequent monitoring of electrolyte kidney function still remains significantly elevated. Patient has also been seen in consultation by nephrology 2. Acute hypovolemic hyponatremia being resuscitated with IV fluid 3. Anion gap acidosis secondary to AK I patient was managed on bicarb drip 4. Hypertension continue with patient home amlodipine. Lisinopril and HCTZ discontinued in view of hyponatremia and AK I 5. Depression with anxiety patient is on citalopram and buspirone 6. Stage II decubitus ulcer present on admission 7. Physical debility requested for PT OT eval 8. DVT prophylaxis SC heparin Clinical Impression(s) from Imaging Studies Chest X-Ray 10/28/18 13:20 IMPRESSION: Cardiomegaly with hyperexpansion, diffuse interstitial pattern and large hiatal hernia. No acute finding. Electronically Signed: Shayne Weldon MD at 14:43 EST , Service support , Renal Ultrasound 10/29/18 15:49 IMPRESSION: Normal ultrasound of the kidneys and urinary bladder. Post void measurements of the urinary bladder were not obtained. Electronically Signed: Jose Antonio Li MD at 2:57 EST , Service support , Active Medications Acetaminophen (Tylenol) 650 mg PO Q6H PRN PRN PRN Reason: Mild Pain (1-3)/Temp > 100.7 F Amlodipine Besylate (Norvasc) 10 mg PO DAILY [facility] Last Admin: 10/30/18 07:58 Dose: Not Given Betamethasone Valerate (Valisone 0.1% Cream) 1 applic TOPICAL TID PRN; Protocol PRN Reason: RASH/TOPICAL IRRITATION Buspirone HCl (Buspar) 30 mg PO BID [facility] Last Admin: 10/30/18 07:58 Dose: 30 mg Citalopram Hydrobromide (Celexa) 10 mg PO DAILY [facility] Last Admin: 10/30/18 07:58 Dose: 10 mg Gabapentin (Neurontin) 100 mg PO TIDCM [facility] Last Admin: 10/30/18 07:58 Dose: 100 mg Heparin Sodium (Porcine) (Heparin Na) 5,000 unit SC Q8 [facility] Last Admin: 10/30/18 05:48 Dose: 5,000 unit Sodium Bicarbonate 150 meq/ (Dextrose) 1,150 mls @ 150 mls/hr IV .Q7H40M [facility] Last Admin: 10/30/18 07:57 Dose: 150 mls/hr Magnesium Hydroxide (Milk Of Magnesia) 30 ml PO DAILY PRN PRN PRN Reason: Constipation Nutritional Formula (Lactose Free) (Ensure Enlive) 120 ml PO 4X/DAY [facility] Last Admin: 10/30/18 07:58 Dose: 120 ml Ondansetron HCl (Zofran) 4 mg IV Q8H PRN PRN PRN Reason: NAUSEA Last Admin: 10/30/18 10:01 Dose: 4 mg Sodium Chloride () 5 - 15 ml IV UD PRN PRN Reason: SALINE FLUSH Last Admin: 10/28/18 17:43 Dose: 10 ml
[2018-10-31] MEDS: busPIRone 15 MG TABLET 30 MG PO (08:03)
[2018-10-31] MEDS: Gabapentin 100 MG Capsule PO (08:03)
[2018-10-31] MEDS: Citalopram 10 MG Tablet PO (08:03)
[2018-10-31] MEDS: amLODIPine 10 MG Tablet PO (08:04)
[2018-10-31 08:06] VITALS: BP 121/53; PULSE 79; RESP 16; TEMP 36.8; O2SAT 93
--- NOTE | 2018-10-31 09:03 | PCM.DC ---
- Discharge Diagnoses Current Active Problems: Current Active and Chronic Problems (Last Updated 10/28/18 @ 15:31 by Alf Addison DO) Acute kidney injury (Acute) Hyponatremia (Acute) Metabolic acidosis (Acute) You will use the following diet at home:: Cardiac Discharge Activity: Return to Normal Activity Allergies/Adverse Reactions: Allergies No Known Allergies Allergy (Verified 07/20/17 03:43) Medications to take at Discharge Amlodipine Besylate [Norvasc] 10 mg PO DAILY 10/28/18 Benzonatate 200 mg PO TID PRN PRN 10/28/18 Buspirone HCl 30 mg PO BID 10/28/18 Citalopram [Celexa] 10 mg PO DAILY 10/28/18 Gabapentin [Neurontin] 400 mg PO TIDCM 10/28/18 Triamcinolone 0.5% Cream [Kenalog] 1 applic TOPICAL BID 10/28/18 Primary Care Physician: Reuben Martinez MD [Primary Care Provider] - Please follow up with your Primary Care Physician in: in 1 week for REPEAT BMP Test Results: Test results from this visit will be discussed in further detail at your follow-up appointment, if applicable. Please Follow Up With: Lizbeth Simeon MD Proposed Discharge Date: 10/31/18
--- NOTE | 2018-10-31 09:06 | DCINST_ITS ---
- Discharge Diagnoses Current Active Problems: Current Active and Chronic Problems (Last Updated 10/28/18 @ 15:31 by Alf Addison DO) Acute kidney injury (Acute) Hyponatremia (Acute) Metabolic acidosis (Acute) You will use the following diet at home:: Cardiac Discharge Activity: Return to Normal Activity Allergies/Adverse Reactions: Allergies No Known Allergies Allergy (Verified 07/20/17 03:43) Medications to take at Discharge Amlodipine Besylate [Norvasc] 10 mg PO DAILY 10/28/18 Benzonatate 200 mg PO TID PRN PRN 10/28/18 Buspirone HCl 30 mg PO BID 10/28/18 Citalopram [Celexa] 10 mg PO DAILY 10/28/18 Gabapentin [Neurontin] 400 mg PO TIDCM 10/28/18 Triamcinolone 0.5% Cream [Kenalog] 1 applic TOPICAL BID 10/28/18 Primary Care Physician: Reuben Martinez MD [Primary Care Provider] - Please follow up with your Primary Care Physician in: in 1 week for REPEAT BMP Test Results: Test results from this visit will be discussed in further detail at your follow- up appointment, if applicable. Please Follow Up With: Lizbeth Simeon MD Proposed Discharge Date: 10/31/18
--- NOTE | 2018-10-31 09:06 | PCM.DC.SUM ---
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 Patient was found to have acute kidney injury with creatinine greater than 9. She had apparently been prescribed Bactrim for an upper respiratory tract infection. 1. Acute kidney injury multifactorial from hypovolemia as well as medication induced. Patient on fluids with subsequent monitoring of electrolyte kidney function still remains significantly elevated. Patient has also been seen in consultation by nephrology. Patient kidney function did improve with discontinuation of suspected offending medication. Was rehydrated and kidney function was closed back to baseline at the time of discharge. Plan is for patient to follow-up with her PCP as well as nephrology for repeat BMP as outpatient 2. Acute hypovolemic hyponatremia being resuscitated with IV fluid 3. Anion gap acidosis secondary to AK I patient was managed on bicarb drip 4. Hypertension continue with patient home amlodipine. Lisinopril and HCTZ discontinued in view of hyponatremia and ILANA patient blood pressure did remain stable on amlodipine 5. Depression with anxiety patient is on citalopram and buspirone 6. Stage II decubitus ulcer present on admission 7. Physical debility requested for PT OT eval 8. DVT prophylaxis SC heparin 9. Tobacco dependence counseled on cessation, offered nicotine patch for tobacco cravings Patient Problems: Active and Suspected Problems (Last Updated 10/28/18 @ 15:31 by Alf Addison DO) Acute kidney injury (Acute) Hyponatremia (Acute) Metabolic acidosis (Acute) - Physical Exam General: Well developed HEENT: Atraumatic Neck: Supple Lungs: Diminished Cardiovascular: Regular rate, Regular Rhythm Neurological: Neuro grossly intact Psych/Mental Status: Normal Affect Vital Signs Temp Pulse Resp BP Pulse Ox 98.2 F 79 16 121/53 H 93 01/15/19 08:06 10/31/18 08:06 10/31/18 08:06 10/31/18 08:06 10/31/18 08:06 Oxygen Delivery Method Room Air Weight: 91.4 kg Body Mass Index (BMI) 37.0 Intake and Output for Last 24 Hours 10/29/18 10/30/18 10/31/18 23:59 23:59 23:59 Intake Total 1864 / 1864 5472 / 5472 655 / 655 Output Total 1200 / 1200 600 / 600 1100 / 1100 Balance 664 / 664 4872 / 4872 -445 / -445 Microbiology Past 72 Hours 10/28/18 19:37 Urine Culture - Final Urine, Clean Catch Mixed Gram Positive Organisms 10/28/18 13:33 Blood Culture - Preliminary Blood Culture (Wb) - Right Hand No growth in 48 hours. 10/28/18 13:30 Blood Culture - Preliminary Blood Culture (Wb) - Anticubital Left No growth in 48 hours. Laboratory Tests Past 24 Hrs 10/31/18 10/31/18 05:26 05:26 WBC 6.3 RBC 3.20 L Hgb 8.5 L Hct 26.3 L MCV 82.2 MCH 26.6 L MCHC 32.3 RDW 15.2 H RDW Differential 43.5 Plt Count 190 MPV 10.1 Sodium 133 L Potassium 4.3 Chloride 95 L Carbon Dioxide 31.0 Anion Gap 7 BUN 38 H Creatinine 1.57 H Estim Creat Clear Calc 24.80 Est GFR (MDRD) Af Amer 42 L Est GFR (MDRD) Non-Af 34 L BUN/Creatinine Ratio 24.2 H Glucose 104 Calcium 8.1 L Magnesium 2.1 Discharge Diet: Low fat/ Low Cholesterol Discharge Activity: Return to Normal Activity Home Medications: Medications to take at Discharge Amlodipine Besylate [Norvasc] 10 mg PO DAILY 10/28/18 Benzonatate 200 mg PO TID PRN PRN 10/28/18 Buspirone HCl 30 mg PO BID 10/28/18 Citalopram [Celexa] 10 mg PO DAILY 10/28/18 Gabapentin [Neurontin] 400 mg PO TIDCM 10/28/18 Triamcinolone 0.5% Cream [Kenalog] 1 applic TOPICAL BID 10/28/18 Primary Care Physician: Reuben Martinez MD [Primary Care Provider] - Please follow up with your Primary Care Physician in: in 1 week for REPEAT BMP Please Follow Up With: Lizbeth Simeon MD When: IN 1-2 WEEKS Disposition: Home Minutes spent on discharge:: 35 Patient Condition:: Stable Medical Necessity - Tobacco Use Smoking Status: Current every day smoker Tobacco Use: Cigarettes Meaningful Use Info Meaningful Use Diagnoses (Choose all that apply): None applicable Code Visit Inpatient E&M: 71218 Disch Hosp
--- NOTE | 2018-10-31 09:09 | DS.PCM_ITS ---
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 Patient was found to have acute kidney injury with creatinine greater than 9. She had apparently been prescribed Bactrim for an upper respiratory tract infection. 1. Acute kidney injury multifactorial from hypovolemia as well as medication induced. Patient on fluids with subsequent monitoring of electrolyte kidney function still remains significantly elevated. Patient has also been seen in consultation by nephrology. Patient kidney function did improve with discontin uation of suspected offending medication. Was rehydrated and kidney function was closed back to baseline at the time of discharge. Plan is for patient to follow-up with her PCP as well as nephrology for repeat BMP as outpatient 2. Acute hypovolemic hyponatremia being resuscitated with IV fluid 3. Anion gap acidosis secondary to AK I patient was managed on bicarb drip 4. Hypertension continue with patient home amlodipine. Lisinopril and HCTZ discontinued in view of hyponatremia and ILANA patient blood pressure did remain stable on amlodipine 5. Depression with anxiety patient is on citalopram and buspirone 6. Stage II decubitus ulcer present on admission 7. Physical debility requested for PT OT eval 8. DVT prophylaxis SC heparin 9. Tobacco dependence counseled on cessation, offered nicotine patch for tobacco cravings Patient Problems: Active and Suspected Problems (Last Updated 10/28/18 @ 15:31 by Alf Addison DO) Acute kidney injury (Acute) Hyponatremia (Acute) Metabolic acidosis (Acute) - Physical Exam General: Well developed HEENT: Atraumatic Neck: Supple Lungs: Diminished Cardiovascular: Regular rate, Regular Rhythm Neurological: Neuro grossly intact Psych/Mental Status: Normal Affect Vital Signs Temp Pulse Resp BP Pulse Ox 98.2 F 79 16 121/53 H 93 10/31/18 08:06 10/31/18 08:06 10/31/18 08:06 10/31/18 08:06 10/31/18 08:06 Oxygen Delivery Method Room Air Weight: 91.4 kg Body Mass Index (BMI) 37.0 Intake and Output for Last 24 Hours 10/29/18 10/30/18 10/31/18 23:59 23:59 23:59 Intake Total 1864 / 1864 5472 / 5472 655 / 655 Output Total 1200 / 1200 600 / 600 1100 / 1100 Balance 664 / 664 4872 / 4872 -445 / -445 Microbiology Past 72 Hours 10/28/18 19:37 Urine Culture - Final Urine, Clean Catch Mixed Gram Positive Organisms 10/28/18 13:33 Blood Culture - Preliminary Blood Culture (Wb) - Right Hand No growth in 48 hours. 10/28/18 13:30 Blood Culture - Preliminary Blood Culture (Wb) - Anticubital Left No growth in 48 hours. Laboratory Tests Past 24 Hrs 10/31/18 10/31/18 05:26 05:26 WBC 6.3 RBC 3.20 L Hgb 8.5 L Hct 26.3 L MCV 82.2 MCH 26.6 L MCHC 32.3 RDW 15.2 H RDW Differential 43.5 Plt Count 190 MPV 10.1 Sodium 133 L Potassium 4.3 Chloride 95 L Carbon Dioxide 31.0 Anion Gap 7 BUN 38 H Creatinine 1.57 H Estim Creat Clear Calc 24.80 Est GFR (MDRD) Af Amer 42 L Est GFR (MDRD) Non-Af 34 L BUN/Creatinine Ratio 24.2 H Glucose 104 Calcium 8.1 L Magnesium 2.1 Discharge Diet: Low fat/ Low Cholesterol Discharge Activity: Return to Normal Activity Home Medications: Medications to take at Discharge Amlodipine Besylate [Norvasc] 10 mg PO DAILY 10/28/18 Benzonatate 200 mg PO TID PRN PRN 10/28/18 Buspirone HCl 30 mg PO BID 10/28/18 Citalopram [Celexa] 10 mg PO DAILY 10/28/18 Gabapentin [Neurontin] 400 mg PO TIDCM 10/28/18 Triamcinolone 0.5% Cream [Kenalog] 1 applic TOPICAL BID 10/28/18 Primary Care Physician: Reuben Martinez MD [Primary Care Provider] - Please follow up with your Primary Care Physician in: in 1 week for REPEAT BMP Please Follow Up With: Lizbeth Simeon MD When: IN 1-2 WEEKS Disposition: Home Minutes spent on discharge:: 35 Patient Condition:: Stable Medical Necessity - Tobacco Use Smoking Status: Current every day smoker Tobacco Use: Cigarettes Meaningful Use Info Meaningful Use Diagnoses (Choose all that apply): None applicable Code Visit Inpatient E&M: 86650 Disch Hosp
[2018-11-01 11:33] LABS: Eosinophil Ct. Urine No Eosinophils Seen % (.)
== END 2018-10-31 09:58 | disposition home or self-care (01) | DRG 683 ==
LOC: ED 14:47 → MS3 15:07
PROVIDERS: Internal Medicine Nephrology; Student in an Organized Health Care Education/Training Program; Emergency Provider Emergency Medicine; Family Provider Family Medicine; PCP Family Medicine; Visit Provider Internal Medicine
DX: N17.9 Acute kidney failure, unspecified (principal); E87.2 Acidosis; E87.1 Hypo-osmolality and hyponatremia; L89.312 Pressure ulcer of right buttock, stage 2; E86.1 Hypovolemia; F41.8 Other specified anxiety disorders; I10 Essential (primary) hypertension; R53.81 Other malaise; F17.210 Nicotine dependence, cigarettes, uncomplicated; T37.0X5A Adverse effect of sulfonamides, initial encounter
CPT/HCPCS: 36415; 71046; 76770; 80048; 80053; 81001; 82570; 83605; 83735; 83930; 83935; 84300; 84540; 85025; 85027; 87040; 87086; 87088; 87205; 93005; 97110; 97161; 97165; 97802; 99285; 99406; J7030; A4216; J2405

== ENCOUNTER 2018-11-29 15:59 | Emergency (ER) | payer MEDICARE, SELFPAY ==
[2018-10-28 15:53] VITALS: BMI 37.0
[2018-11-29 16:01] VITALS: BP 87/59; PULSE 102; RESP 16; TEMP 36.7; O2SAT 96; BMI 37.8
--- NOTE | 2018-11-29 17:22 | CT_ITS ---
STUDY: CT FACIAL BONES WITHOUT CONTRAST REASON FOR EXAM: Female, 73 years old. Pain. Trauma. Swelling RADIATION DOSAGE (If Supplied By Facility): CTDIvol = ( 33.45 ) mGy, DLP = ( 570.61 ) mGycm TECHNIQUE: The patient was scanned in a multi detector CT scanner. Sagittal and coronal images were reconstructed. Individualized dose optimization techniques were used for this CT. COMPARISON: None. FINDINGS: There is left frontal and paranasal soft tissue swelling . Normal orbital diop and orbital contents. Normal nasal bones and anterior nasal spine. Normal facial bones. There is no demonstrated fracture. There is poor dentition with multiple missing teeth. There is a single remaining right maxillary tooth. There is mucosal thickening of the maxillary, frontal, and ethmoid sinuses. CT/Sinus/Facial Bone IMPRESSION: Soft tissue swelling. No fracture. Electronically Signed: Cristhian Laura MD at 18:05 EST , Service support ,
--- NOTE | 2018-11-29 17:22 | CT_ITS ---
STUDY: CT BRAIN WITHOUT CONTRAST REASON FOR EXAM: Female, 73 years old. Trauma. Swelling. RADIATION DOSAGE (If Supplied By Facility): CTDIvol = ( 60.81 ) mGy, DLP = ( 998.67 ) mGycm TECHNIQUE: Transaxial CT imaging of the brain was performed without administration of intravenous contrast material. Individualized dose optimization techniques were used for this CT. COMPARISON: None. FINDINGS: There is right frontal soft tissue swelling. Normal calvarium. There is mild cerebral atrophy with widening of the extra-axial spaces and ventricular dilatation. There are areas of decreased attenuation within the white matter tracts of the supratentorial brain, consistent with microvascular disease changes. Normal basal ganglia and thalami. Normal brainstem. There is mild cerebellar atrophy. There is no intracranial hemorrhage. There are no findings of an acute ischemic infarction. There is mucoperiosteal inflammatory disease of the paranasal sinuses consistent with mild chronic sinusitis. CT/Brain/Head without Contrast IMPRESSION: Chronic involutional changes of the brain. Soft tissue swelling. No hemorrhage. Electronically Signed: Cristhian Laura MD at 17:55 EST , Service support ,
--- NOTE | 2018-11-29 18:34 | ED.VISSUMM ---
- ER Visit Summary Date of Service: 11/29/18 Chief Complaint: Fall with laceration History of Present Illness: The patient is a 73 F who tripped and fell this morning striking her head against the metal step edge. She is a large laceration across the lower forehead. Patient presents approximately 9 hours after injury. She states her was out of town for doctor's appointment should wait for him to come back to town to bring her to the hospital. She denies loss of consciousness. She has a mild headache. Physical Examination: Vital signs in triage include a blood pressure of 87/59 with a heart rate of 102. The time of my examination blood pressure is 125/83. Patient is sitting upright in bed. She has a 5 cm long laceration over the right and central lower forehead. Wound is gaping largely. Head neck examination is otherwise significant for no bony tenderness around the orbital rim. Extraocular movements are intact. She has an abrasion over the nasal bridge. There is no C-spine tenderness. Heart is regular rate and rhythm. Lungs sounds are clear. Neuro exam is normal. Test Results: CT head shows chronic involutional changes. Soft tissue swelling is noted. No hemorrhage. CT of the facial bones shows soft tissue swelling with no fracture. Emergency Department Course and Treatment: Wound was anesthetized with 5 cc 1% lidocaine locally. Wound was cleansed. 3 Rapide Vicryl subcutaneous stitches were placed to approximate the wound. Skin was then closed with 13 simple interrupted sutures of 6-0 nylon. Patient tolerated procedure well. Treatment Plan: [] Disposition: Discharge Impression: 1. Mechanical fall 2. Facial laceration status post suture This note was generated with [employer] dictation software. It may contain incorrect words, spelling, and punctuation that were not noted in review of the chart prior to signing ED Disposition - Plan for ED Patient: Disposition: Home or Assisted Living Instructions: ED Laceration Facial Sutr Tape Referrals: Reuben Martinez MD [Primary Care Provider] - 7 Days for suture removal
[2018-11-29 18:44] VITALS: PULSE 123; RESP 14; O2SAT 98
== END 2018-11-29 18:45 | disposition home or self-care (01) ==
PROVIDERS: Emergency Provider Emergency Medicine; Family Provider Family Medicine; PCP Family Medicine
DX: S01.81XA Laceration without foreign body of other part of head, initial encounter (principal); S00.31XA Abrasion of nose, initial encounter; W01.198A Fall on same level from slipping, tripping and stumbling with subsequent striking against other object, initial encounter; Y93.9 Activity, unspecified; Y92.9 Unspecified place or not applicable; I10 Essential (primary) hypertension; F41.9 Anxiety disorder, unspecified; F32.9 Major depressive disorder, single episode, unspecified; Z79.899 Other long term (current) drug therapy; Z87.891 Personal history of nicotine dependence
CPT/HCPCS: 12013; 70450; 70486; 99283; A4216

== ENCOUNTER 2018-12-04 16:15 | Emergency (ER) | payer MEDICARE, SELFPAY ==
[2018-12-04 16:16] VITALS: BP 117/76; PULSE 98; RESP 14; TEMP 36.8; O2SAT 98; BMI 37.4
--- NOTE | 2018-12-04 16:30 | ED.VIS.GEN ---
History of Present Illness Chief Complaint: Chest Other Informant: Patient Onset: Days - 4; a day after the fall Context: Gradual Onset Timing: Continuous Quality: sore Location: right ribcage Current Severity: Severe Maximum Severity: Severe Worsened by: movement, deep inspiration Relieved by: not by tylenol Associated Symptoms: no dyspnea or other pains. Narrative: Patient had a fall about 5 days ago, she hit the corner of 1 of the steps with her face and had a laceration that was repaired here in the ER. She states her right rib cage she fell against the floor at the same time, but it was not bothering her until the next day. She states it has continued to significantly bother her. She is taking [id number] pain medicine at home but it has not been helping. She denies any dyspnea. No abdominal pain, nausea, vomiting, bright red blood per rectum, or melena. Her extremities have been okay, she bruised her right knee but it is feeling better, not worse. The laceration repair has not been giving her any major issues. - Past Medical History (1) Hypertension Status: Chronic Past Medical History - Allergies and Home Meds Allergies/Adverse Reactions: Allergies No Known Allergies Allergy (Verified 12/04/18 16:18) Primary Care Physician: Reuben Martinez MD [Primary Care Provider] - Surgical History: no surgical history Lives: Spouse/ Significant Other Smoking Status: Former smoker - Family History Maternal Family History: Reports: - - no kidney disease Review of Systems General: Denies: Chills, Fever Eyes: Denies: Visual changes - bilaterally, Diplopia Cardiovascular: Reports: Chest pain - right ribs Respiratory: Denies: Dyspnea, Cough Gastrointestinal: Denies: Abdominal pain, Nausea, Vomiting, Melena, Hematochezia Musculoskeletal: Reports: Extremity Pain - see HPI. right knee.. Denies: Back pain Physical Exam Vital Signs/Narrative: Vital Signs Temp Pulse Resp BP Pulse Ox 12/04/18 16:16 98.2 F 98 14 117/76 98 Inital Vital Signs reviewed: Yes General: Well nourished, Well developed, No Acute Distress Head: Normocephalic, Trauma - periorbital ecchymosis bilat. healing facial laceration across forehead and nasal bridge. no signs of dehiscence, bleeding, or infection. Eyes: Perrl, EOMI ENT: Moist mucous membranes, No rhinorrhea Neck: Supple. Negative for: Nontender Cardiovascular: Regular rate, Regular rhythm, Normal S1, Normal S2, Murmur - systolic Respiratory: No distress, CTA bilaterally, Chest tenderness - throughout right lower anterior and lateral ribcage; no crepitance, SQ emphysema. Abdomen: Soft, Nontender, Nondistended, Normal bowel sounds Extremities: Nontender, No edema, - - FROM right knee and other joints/ext's Skin: Normal color, Trauma - ecchymotic right anterior knee. Neurological: Alert, Oriented x3, Cranial nerves II-XII grossly intact, Normal Strength, Normal Sensation Psychological: Normal affect, Normal Mood Diagnostic/Tx/Re-eval Clinical Impression(s) from Imaging Studies Ribs w/Chest X-Ray 12/04/18 16:40 IMPRESSION: RIBS: Fractures of the lateral to anterolateral right 3-8 ribs. No pneumothorax CHEST: 1. Large hiatal hernia. 2. Subsegmental airspace disease in the medial left base. Electronically Signed: Michael Christianson MD at 17:37 EST , Service support , - Medical Decision Making Patient has 6 single rib fractures. There is no flail segment or pneumothorax. She does have radiographic evidence of either atelectasis or subsegmental airspace disease in the right lung, patient states she has had mucus drainage and a cough lately, she has had that since prior to this fall. She was offered admission, however she adamantly refuses and states she will be fine at home as long as she has some pain medication. She was given a [place] here, and will be prescribed that, an antibiotic as a just in case although my suspicion is that this represents subsegmental atelectasis versus pneumonia, and she is due to follow-up with her doctor in a couple days. She is comfortable with this overall plan with supportive care, and incentive spirometer at home to use 10 times every hour while awake, and return to the ER if she gets dyspneic or worse. ED Disposition - Plan for ED Patient: Disposition: Home or Assisted Living Diagnosis: Ribs, multiple fractures Instructions: ED Fx Rib Prescriptions: Hydrocodone Bitart/Apap 5-325 [[place] 5MG-325MG] 1 - 2 tablet PO Q6H PRN PRN 3 Days #24 tablet PRN Reason: Pain Amox/Clavulanate Tablet [Augmentin Tablet] 875 mg PO Q12H #20 tablet Referrals: Reuben Martinez MD [Primary Care Provider] - Keep Ismael appointment
--- NOTE | 2018-12-04 16:34 | ED.DCSUM_ITS ---
History of Present Illness Chief Complaint: Chest Other Informant: Patient Onset: Days - 4; a day after the fall Context: Gradual Onset Timing: Continuous Quality: sore Location: right ribcage Current Severity: Severe Maximum Severity: Severe Worsened by: movement, deep inspiration Relieved by: not by tylenol Associated Symptoms: no dyspnea or other pains. Narrative: Patient had a fall about 5 days ago, she hit the corner of 1 of the steps with her face and had a laceration that was repaired here in the ER. She states her right rib cage she fell against the floor at the same time, but it was not bothering her until the next day. She states it has continued to significantly bother her. She is taking [id number] pain medicine at home but it has not been helping. She denies any dyspnea. No abdominal pain, nausea, vomiting, marian ght red blood per rectum, or melena. Her extremities have been okay, she bruised her right knee but it is feeling better, not worse. The laceration repair has not been giving her any major issues. - Past Medical History (1) Hypertension Status: Chronic Past Medical History - Allergies and Home Meds Allergies/Adverse Reactions: Allergies No Known Allergies Allergy (Verified 12/04/18 16:18) Primary Care Physician: Reuben Martinez MD [Primary Care Provider] - Surgical History: no surgical history Lives: Spouse/ Significant Other Smoking Status: Former smoker - Family History Maternal Family History: Reports: - - no kidney disease Review of Systems General: Denies: Chills, Fever Eyes: Denies: Visual changes - bilaterally, Diplopia Cardiovascular: Reports: Chest pain - right ribs Respiratory: Denies: Dyspnea, Cough Gastrointestinal: Denies: Abdominal pain, Nausea, Vomiting, Melena, Hematochezia Musculoskeletal: Reports: Extremity Pain - see HPI. right knee.. Denies: Back pain Physical Exam Vital Signs/Narrative: Vital Signs Temp Pulse Resp BP Pulse Ox 12/04/18 16:16 98.2 F 98 14 117/76 98 Inital Vital Signs reviewed: Yes General: Well nourished, Well developed, No Acute Distress Head: Normocephalic, Trauma - periorbital ecchymosis bilat. healing facial laceration across forehead and nasal bridge. no signs of dehiscence, bleeding, or infection. Eyes: Perrl, EOMI ENT: Moist mucous membranes, No rhinorrhea Neck: Supple. Negative for: Nontender Cardiovascular: Regular rate, Regular rhythm, Normal S1, Normal S2, Murmur - systolic Respiratory: No distress, CTA bilaterally, Chest tenderness - throughout right lower anterior and lateral ribcage; no crepitance, SQ emphysema. Abdomen: Soft, Nontender, Nondistended, Normal bowel sounds Extremities: Nontender, No edema, - - FROM right knee and other joints/ext's Skin: Normal color, Trauma - ecchymotic right anterior knee. Neurological: Alert, Oriented x3, Cranial nerves II-XII grossly intact, Normal Strength, Normal Sensation Psychological: Normal affect, Normal Mood Diagnostic/Tx/Re-eval Clinical Impression(s) from Imaging Studies Ribs w/Chest X-Ray 12/04/18 16:40 IMPRESSION: RIBS: Fractures of the lateral to anterolateral right 3-8 ribs. No pneumothorax CHEST: 1. Large hiatal hernia. 2. Subsegmental airspace disease in the medial left base. Electronically Signed: Michael Christianson MD at 17:37 EST , Service support , - Medical Decision Making Patient has 6 single rib fractures. There is no flail segment or pneumothorax. She does have radiographic evidence of either atelectasis or subsegmental a irspace disease in the right lung, patient states she has had mucus drainage and a cough lately, she has had that since prior to this fall. She was offered admission, however she adamantly refuses and states she will be fine at home as long as she has some pain medication. She was given a [place] here, and will be prescribed that, an antibiotic as a just in case although my suspicion is that this represents subsegmental atelectasis versus pneumonia, and she is due to follow-up with her doctor in a couple days. She is comfortable with this overall plan with supportive care, and incentive spirometer at home to use 10 times every hour while awake, and return to the ER if she gets dyspneic or worse. ED Disposition - Plan for ED Patient: Disposition: Home or Assisted Living Diagnosis: Ribs, multiple fractures Instructions: ED Fx Rib Prescriptions: Hydrocodone Bitart/Apap 5-325 [[place] 5MG-325MG] 1 - 2 tablet PO Q6H PRN PRN 3 Days #24 tablet PRN Reason: Pain Amox/Clavulanate Tablet [Augmentin Tablet] 875 mg PO Q12H #20 tablet Referrals: Reuben Martinez MD [Primary Care Provider] - Keep Ismael appointment
--- NOTE | 2018-12-04 16:40 | RAD_ITS ---
STUDY: X-RAY - UNILATERAL RIBS ( RIGHT ) WITH CHEST REASON FOR EXAM: Female, 73 years old. Fall, anterior right rib pain. TECHNIQUE - RIBS: 4 view(s) of the ribs. TECHNIQUE - CHEST: Single frontal view of the chest. COMPARISON: None. FINDINGS - RIBS: There are fractures of the right 3-8 ribs, progressing from lateral to anterolateral going superiorly to inferior. FINDINGS - CHEST: The right lung is clear and expanded. Also subsegmental atelectasis or other airspace disease in the medial left base. There is no demonstrated pleural abnormality. Large size is upper normal. Normal mediastinum and aly. Normal visualized pulmonary arteries. There is atherosclerotic calcification of the aortic arch. There are multilevel degenerative changes of the visualized thoracic spine. Normal visualized ribs, clavicles, and shoulders. There is a large rounded density consistent with a partially gas filled hiatal hernia overlapping the lower thoracic spine and medial lung bases. RAD/Ribs Uni Min 3V w/PA Chest IMPRESSION: RIBS: Fractures of the lateral to anterolateral right 3-8 ribs. No pneumothorax CHEST: 1. Large hiatal hernia. 2. Subsegmental airspace disease in the medial left base. Electronically Signed: Michael Christianson MD at 17:37 EST , Service support ,
[2018-12-04] MEDS: HYDROcodone Bitartrate/Apap 5/325 Tablet PO (17:56)
[2018-12-04 18:19] VITALS: BP 124/77; PULSE 81; RESP 16; O2SAT 96
[2018-12-04] MEDS: Amox/Clavulanate 875 MG Tablet PO (18:48)
--- NOTE | 2018-12-04 19:04 | ED.RN ---
resp therapy educated pt on incentive spirometer
== END 2018-12-04 19:06 | disposition home or self-care (01) ==
PROVIDERS: Emergency Provider Emergency Medicine; Family Provider Family Medicine; PCP Family Medicine
DX: S22.41XG Multiple fractures of ribs, right side, subsequent encounter for fracture with delayed healing (principal); W19.XXXD Unspecified fall, subsequent encounter; I10 Essential (primary) hypertension; Z87.891 Personal history of nicotine dependence; K44.9 Diaphragmatic hernia without obstruction or gangrene
CPT/HCPCS: 71101; 99283

== ENCOUNTER 2021-02-26 12:14 | Emergency (ER) | payer MEDICARE, SELFPAY ==
[2021-02-26] VITALS (24 sets, daily range): BP systolic 50–109; BP diastolic 36–83; PULSE 69–145; RESP 12–52; TEMP 36.4–37.1; O2SAT 89–97; BMI 36.3
[2021-02-26] MEDS: 0.9% Normal Saline 1,000 ML 999 ML IV (12:43)
[2021-02-26 12:50] LABS: Absolute Lymphocyte Count 0.98 X10^3/uL (0.83-4.51); Absolute Neutrophil Count 6.3 X10^3/uL (2.0-7.7); Basophil# 0.03 X10^3/uL; Basophil% 0.4 % (0-1); Hematocrit 37.4 % (37-47); Hemoglobin 12.1 g/dL (12.0-15.0); Lymphocyte # 0.98 X10^3/ul (0.83-4.51); Lymphocyte % 12.3 % (19-41); Mean Corp Hgb Conc 32.4 g/dL (32-36); Mean Corpuscular Hgb 24.3 pg (27.0-32.0); Mean Corpuscular Volume 75.1 fL (81-99); Mean Platelet Vol. 11.2 fl (6.2-12.0); Monocyte# 0.66 X10^3/uL; Monocyte% 8.3 % (0-10); NRBC Flagged by Analyzer 0 % (0-5); Neutrophil # 6.28 X10^3/uL (2.7-7.7); Neutrophil % 78.4 % (47-70); Platelet Count 212 K/mm3 (150-450); RBC Distribution Width CV 16.4 % (11.6-14.6); RBC Distribution Width SD 44.1 fl (35.1-43.9); Red Blood Count 4.98 M/mm3 (4.2-5.4)
[2021-02-26] MEDS: 0.9% Normal Saline 1,000 ML 1000 ML IV ×3 (12:53→14:23)
[2021-02-26 12:57] LABS: International Normalized Ratio 1.9; Prothrombin Time (Protime)PT. 20.6 SECONDS (11.7-14.9)
[2021-02-26 12:58] LABS: Partial Thromboplast Time 37.8 Seconds (24.1-36.2)
[2021-02-26 13:02] LABS: Bacteria 0 SEEN /hpf (None Seen); Mucous, Urine 0 SEEN /hpf (<or=2+); Red Blood Cells-Urine 0 SEEN /hpf (0-5); Squamous Epithelial Cells - UA 0 SEEN /hpf (5-10)
[2021-02-26 13:10] LABS: ALB/GLOB Ratio 0.6 RATIO (0.9-2.4); AST(SGOT) 35 U/L (15-37); Alanine Aminotransfer ALT/SGPT 17 U/L (13-56); Albumin, Serum 3.1 g/dL (3.2-5.0); Alkaline Phosphatase 82 U/L (45-117); Anion Gap 21 (5-15); BUN 123 mg/dL (7-18); BUN/Creat Ratio 13.3 RATIO (10-20); Calcium,Total 7.6 mg/dL (8.5-10.1); Chloride 88 mmol/L (98-107); Creatinine, Serum 9.22 mg/dL (0.55-1.02); EST Glomerular Filtration Rate 4 mL/min (>60); Est Glom Filt Rate - Afr Amer 5 mL/min (>60); Estimated Creatinine Clearance 4.04 ml/min; Globulin 4.9 g/dL (2.2-4.2); Glucose 108 mg/dL (74-106); Potassium 4.6 mmol/L (3.5-5.1); Sodium Level 123 mmol/L (136-145)
[2021-02-26 13:16] LABS: Color, Urine Yellow (Yellow); Glucose, Dipstick Normal (Normal); Ketone-Dipstick Negative (Negative); Leukocyte Esterase-Dipstick 25 /ul (Negative); Nitrite-Dipstick Negative (Negative); Occult Blood-Urine 10 /ul (Negative); Protein-Dipstick 15 mg/dl (Negative); Specific Gravity, Urine 1.025 (1.002-1.030); Urine Clarity Clear (Clear); Urine Urobilinogen Normal (Normal)
[2021-02-26 13:19] LABS: Urine Bilirubin Dipstick 3 mg/dL (Negative)
--- NOTE | 2021-02-26 13:20 | RAD_ITS ---
STUDY: X-RAY CHEST REASON FOR EXAM: 76-year-old, old. Patient with hypoxia. TECHNIQUE: Single AP portable view of the chest. COMPARISON: Comparison is made with prior study dated 06/28/2019. FINDINGS: EKG electrodes are seen. There is evidence of vascular congestion and mild degree of CHF. Questionable 1 cm x 1.2 cm nodule in the right upper lobe abutting the right minor fissure. There is no demonstrated pleural abnormality. There is moderate cardiac enlargement. Normal mediastinum and aly. Normal visualized pulmonary arteries. There is atherosclerotic calcification of the aortic arch with tortuosity. There are diffuse degenerative changes of the visualized thoracic spine. Normal visualized ribs, clavicles, and shoulders. Large hiatal hernia. RAD/Chest 1 View (Portable) IMPRESSION: Cardiomegaly and CHF. Questionable 1 cm x 1.2 cm nodule in the right upper lobe abutting the right minor fissure. Follow-up is recommended. Large hiatal hernia. Electronically Signed: Kvng Lira MD at 13:53 EDT , Service support ,
[2021-02-26 13:25] LABS: Lactic Acid 2.3 mmol/L (0.4-1.9)
[2021-02-26 13:32] LABS: Amorphous Sediment 1+; White Blood Cells 0-5 SEEN /hpf (0-5)
--- NOTE | 2021-02-26 13:35 | EDS_ITS ---
HPI History of Present Illness Chief Complaint: Hypotension Informant: patient Narrative Narrative: 76-year-old female states that everybody at her house is sick. She states that they have been tested for COVID-19 and been positive. She has been ill for approximately 1 week. She notes diarrhea. She states she has been so fatigued she has not been taking her medications or eating. She states she has been trying to drink fluids. Symptoms were not improving so she came to the emergency room. She is supposed to be on Xarelto for paroxysmal A. fib. Also history of hypertension. She notes she feels some shortness of breath and has coughing fits. She does not wear oxygen at home. She is a non-smoker. [facility] Medical History Anxiety HTN (hypertension) Paroxysmal atrial fibrillation Home Medications buspirone 10 mg PO BID 10/28/18 [History Last Taken Unknown] gabapentin 400 mg PO TIDCM 10/28/18 [History Last Taken Unknown] triamcinolone acetonide 1 applic TOPICAL BID PRN 10/28/18 [History Last Taken Unknown] lisinopril-hydrochlorothiazide 1 ea PO DAILY 12/04/18 [History Last Taken Unknown] metoprolol tartrate 50 mg PO BID 02/26/21 [History Last Taken Unknown] rivaroxaban [Xarelto] 20 mg PO DAILY 02/26/21 [History Last Taken Unknown] Allergy/AdvReac Type Severity Reaction Status Date / Time sulfamethoxazole AdvReac PT UNABLE Verified 02/26/21 12:14 [From Bactrim] TO RESPOND-NEEDS F/U trimethoprim [From Bactrim] AdvReac PT UNABLE Verified 02/26/21 12:14 TO RESPOND-NEEDS F/U Social History (Updated 02/26/21 @ 13:[address] Tyrone Horton DO) household members: family Smoking Status: Former smoker ROS ROS ED Constitutional Constitutional ED: Reports chills, fever(s) and other Details: Fatigue ; Denies weight loss Eyes Eyes: Denies change in vision or diplopia ENT ENT ED: Reports rhinorrhea; Denies ear pain or sore throat Cardiovascular Cardiovascular: Denies chest pain, orthopnea, palpitations or racing heartbeat Respiratory/Chest Respiratory/Chest: Reports cough, dyspnea and dyspnea on exertion; Denies orthopnea Gastrointestinal Gastrointestinal: Reports diarrhea and nausea; Denies abdominal pain or vomiting Genitourinary Genitourinary ED: Denies dysuria, hematuria or urinary frequency Musculoskeletal Musculoskeletal: Denies arthralgias or myalgias Integumentary Denies abscess or rash Neurologic Neurologic: Reports weakness; Denies headache(s) Psychiatric Psychiatric: Denies anxiety, depression, suicidal ideation or suicidal thoughts Endocrine Endocrinology: Denies polydipsia, polyphagia or polyuria Allergic/Immunologic Allergic/Immunologic ED: Denies mouth swelling, tongue swelling or urticaria EXAM Physical Exam Narrative Exam Narrative: Patient is awake sitting up in the bed conversing normally. This despite a blood pressure of 50/36. Const Vital Signs: 02/26/21 12:15 02/26/21 12:20 02/26/21 12:42 Temperature 97.9 F 97.9 F Temperature Source Oral Oral Pulse Rate 80 70 Respiratory Rate 20 H 16 Respiratory Effort Short of Breath Respiratory Pattern Normal Blood Pressure 50/36 L 56/46 L Blood Pressure Mean 40 49 Blood Pressure Position Blood Pressure Location Pulse Ox 89 94 Oxygen Delivery Method Room Air Nasal Cannula Oxygen Flow Rate (L/min) 3 Fraction of Inspired Oxygen (FIO2) 02/26/21 12:53 02/26/21 13:24 02/26/21 13:56 Temperature 97.9 F Temperature Source Oral Pulse Rate 70 69 73 Respiratory Rate 17 18 Respiratory Effort Respiratory Pattern Blood Pressure 75/49 L 77/51 L 76/43 L Blood Pressure Mean 57 77/51 54 Blood Pressure Position Blood Pressure Location Pulse Ox 96 97 Oxygen Delivery Method Nasal Cannula Nasal Cannula Oxygen Flow Rate (L/min) 3 3 Fraction of Inspired Oxygen (FIO2) 02/26/21 14:00 02/26/21 14:17 02/26/21 14:27 Temperature 97.9 F Temperature Source Oral Pulse Rate 80 81 Respiratory Rate 18 Respiratory Effort Respiratory Pattern Blood Pressure 71/50 L 81/66 L 79/62 L Blood Pressure Mean 57 71 67 Blood Pressure Position Blood Pressure Location Pulse Ox 97 Oxygen Delivery Method Nasal Cannula Oxygen Flow Rate (L/min) 3 Fraction of Inspired Oxygen (FIO2) 02/26/21 15:00 02/26/21 15:11 02/26/21 15:16 Temperature 97.5 F L Temperature Source Core Pulse Rate 130 H 120 H 129 H Respiratory Rate 48 H 52 H Respiratory Effort Respiratory Pattern Blood Pressure 82/67 L 90/67 Blood Pressure Mean 72 74 Blood Pressure Position Blood Pressure Location Pulse Ox 97 96 Oxygen Delivery Method Bi-pap Oxygen Flow Rate (L/min) Fraction of Inspired Oxygen (FIO2) 100 02/26/21 15:40 02/26/21 16:00 02/26/21 16:30 Temperature 98.5 F 98.6 F Temperature Source Core Core Pulse Rate 137 H 135 H Respiratory Rate 14 14 Respiratory Effort Short of Breath Labored Respiratory Pattern Tachypnea Blood Pressure 73/50 L 83/57 L Blood Pressure Mean 57 65 Blood Pressure Position Supine Blood Pressure Location Right Arm Pulse Ox 97 90 91 Oxygen Delivery Method Mechanical Ventilator Mechanical Ventilator Mechanical Ventilator Oxygen Flow Rate (L/min) Fraction of Inspired Oxygen (FIO2) 02/26/21 16:35 02/26/21 16:36 02/26/21 16:49 Temperature 98.5 F 98.6 F Temperature Source Core Core Pulse Rate 139 H 145 H 129 H Respiratory Rate 14 14 14 Respiratory Effort Respiratory Pattern Blood Pressure 83/57 L 89/77 L Blood Pressure Mean 65 81 Blood Pressure Position Supine Blood Pressure Location Right Arm Pulse Ox 91 91 94 Oxygen Delivery Method Mechanical Ventilator Mechanical Ventilator Oxygen Flow Rate (L/min) Fraction of Inspired Oxygen (FIO2) 100 02/26/21 17:10 Temperature Temperature Source Pulse Rate 124 H Respiratory Rate Respiratory Effort Respiratory Pattern Blood Pressure 94/63 Blood Pressure Mean 73 Blood Pressure Position Blood Pressure Location Pulse Ox Oxygen Delivery Method Oxygen Flow Rate (L/min) Fraction of Inspired Oxygen (FIO2) Positive well nourished and well developed General Appearance ED: well developed HEENT Reports normocephalic, head/scalp atraumatic and moist mucous membranes Eyes PERRL and EOMs intact bilaterally Neck no lymphadenopathy, supple and no JVD Resp normal respiratory effort and clear to auscultation bilaterally Cardio regular rate, regular rhythm and no murmurs GI normal to inspection, nondistended, normoactive bowel sounds and non-tender Palpation: soft Back/Spine no CVA tenderness and normal ROM Extremity normal to inspection General Extremety ED: Negative for edema General Extremity: Negative for edema Neuro oriented x3 and CN's II-XII intact bilaterally Sensorium / Orientation: alert Motor Exam: strength 5/5 throughout Psych mental status grossly normal Mood & Affect: Negative for depressed or tearful Skin no rashes or lesions noted and no wounds MDM MDM MDM Narrative Medical decision making narrative: Patient is Covid positive. BUN 123 with a creatinine of 9.22. Troponin slightly elevated 0.164. My interpretation of the chest x-ray is chronic changes with probable multiple areas of infiltrate. Please see radiologist read below. She received IV fluids. Her blood pressure initially at 50 is steadily improving as we administer fluids. I spoke with our soils technician Dr. Rodriguez. I spoke with nephrology who would like to have her started on half-normal saline with 75 mEq of bicarb at 150 an hour. Patient developed respiratory distress and listening to her lungs seen but she was developing pulmonary edema. Patient also went into atrial fibrillation with rapid ventricular response. She did not tolerate BiPAP so we underwent RSI with etomidate and succinylcholine. An 8 oh endotracheal tube was placed on the first step without any difficulty and secured in place at 23 cm. A right IJ central line was placed under ultrasound guided assistance without any difficulty and secured in place. Dark red nonpulsatile blood was obtained. Patient will be sedated. Her to start her on Levophed as well as the aforementioned drip. Post procedural intubation the NG tube was placed originally at 23 somehow was secured at 26 but pulled back to 23. The OG appears to be above the diaphragm of this is due to a large hiatal hernia the infiltrative changes are worsening most likely due to a combination of pulmonary edema and hydration. The central line is approved for use. Patient's ABG after intubation shows a pH of 7.04 bicarbonate 12.6 PCO2 of 45 PaO2 95.5. The hospitalist evaluated the patient and spoke with nephrology and ICU and they are now in agreement that the patient should be transferred. I discussed this with the family. Then I spoke with [facility] and she has been accepted to the MICU there. We are currently awaiting a bed assignment. Lab Data Attestation: I reviewed the patient's lab results. Labs: Laboratory Results - last 24 hr 02/26/21 02/26/21 02/26/21 12:35 12:35 12:35 WBC 8.0 RBC 4.98 Hgb 12.1 Hct 37.4 MCV 75.1 L MCH 24.3 L MCHC 32.4 RDW Std Deviation 44.1 H RDW Coeff of Shawna 16.4 H Plt Count 212 MPV 11.2 Immature Gran % (Auto) 0.600 Neut % (Auto) 78.4 H Lymph % (Auto) 12.3 L Edmunds % (Auto) 8.3 Eos % (Auto) 0.0 Baso % (Auto) 0.4 Absolute Neuts (auto) 6.3 Absolute Lymphs (auto) 0.98 Nucleated RBC % 0 PT 20.6 H INR 1.9 APTT 37.8 H Sodium 123 L Potassium 4.6 Chloride 88 L Carbon Dioxide 14.0 L Anion Gap 21 H BUN 123 H* Creatinine 9.22 H* Estim Creat Clear Calc 4.04 Est GFR (MDRD) Af Amer 5 L Est GFR (MDRD) Non-Af 4 L BUN/Creatinine Ratio 13.3 Glucose 108 H Lactic Acid Calcium 7.6 L Phosphorus Magnesium Total Bilirubin 0.40 AST 35 ALT 17 Alkaline Phosphatase 82 Troponin I 0.164 H Total Protein 8.0 Albumin 3.1 L Globulin 4.9 H Albumin/Globulin Ratio 0.6 L Urine Color Urine Clarity Urine pH Ur Specific [place] Urine Protein Urine Glucose (UA) Urine Ketones Urine Occult Blood Urine Nitrite Urine Bilirubin Urine Urobilinogen Ur Leukocyte Esterase Urine RBC Urine WBC Ur Squamous Epith Cells Amorphous Sediment Urine Bacteria Urine Mucus 02/26/21 02/26/21 02/26/21 12:35 12:35 12:50 WBC RBC Hgb Hct MCV MCH MCHC RDW Std Deviation RDW Coeff of Shawna Plt Count MPV Immature Gran % (Auto) Neut % (Auto) Lymph % (Auto) Edmunds % (Auto) Eos % (Auto) Baso % (Auto) Absolute Neuts (auto) Absolute Lymphs (auto) Nucleated RBC % PT INR APTT Sodium Potassium Chloride Carbon Dioxide Anion Gap BUN Creatinine Estim Creat Clear Calc Est GFR (MDRD) Af Amer Est GFR (MDRD) Non-Af BUN/Creatinine Ratio Glucose Lactic Acid 2.3 H* Calcium Phosphorus 12.7 H* Magnesium 2.3 Total Bilirubin AST ALT Alkaline Phosphatase Troponin I Total Protein Albumin Globulin Albumin/Globulin Ratio Urine Color Yellow Urine Clarity Clear Urine pH 5.0 Ur Specific [place] 1.025 Urine Protein 15 H Urine Glucose (UA) Normal Urine Ketones Negative Urine Occult Blood 10 H Urine Nitrite Negative Urine Bilirubin 3 H Urine Urobilinogen Normal Ur Leukocyte Esterase 25 H Urine RBC 0 SEEN Urine WBC 0-5 SEEN Ur Squamous Epith Cells 0 SEEN Amorphous Sediment 1+ Urine Bacteria 0 SEEN Urine Mucus 0 SEEN 02/26/21 17:05 WBC RBC Hgb Hct MCV MCH MCHC RDW Std Deviation RDW Coeff of Shawna Plt Count MPV Immature Gran % (Auto) Neut % (Auto) Lymph % (Auto) [place] % (Auto) Eos % (Auto) Baso % (Auto) Absolute Neuts (auto) Absolute Lymphs (auto) Nucleated RBC % PT INR APTT Sodium Potassium Chloride Carbon Dioxide Anion Gap BUN Creatinine Estim Creat Clear Calc Est GFR (MDRD) Af Amer Est GFR (MDRD) Non-Af BUN/Creatinine Ratio Glucose Lactic Acid 1.4 Calcium Phosphorus Magnesium Total Bilirubin AST ALT Alkaline Phosphatase Troponin I Total Protein Albumin Globulin Albumin/Globulin Ratio Urine Color Urine Clarity Urine pH Ur Specific [place] Urine Protein Urine Glucose (UA) Urine Ketones Urine Occult Blood Urine Nitrite Urine Bilirubin Urine Urobilinogen Ur Leukocyte Esterase Urine RBC Urine WBC Ur Squamous Epith Cells Amorphous Sediment Urine Bacteria Urine Mucus ABG Data ABG results: ABG 02/26/21 16:45 Specimen Type ART Sample Site R Radial pH 7.05 L* Bicarbonate Actual 12.6 L Total CO2 14 Base Excess -18 L O2 Saturation 93 L O2 % 100 ABG pCO2 45.7 H ABG pO2 96 Kristopher Test Positive Respiration Rate 14 O2 Delivery Device Adult Vent Vent Mode AC Tidal Volume 450 POC PEEP 10 Crit Call To/Read Back Yes Blood Gas Notified Whom hoenhe Radiography Diagnostic Testing: Radiology Impression Chest X-Ray 02/26/21 13:20 IMPRESSION: Cardiomegaly and CHF. Questionable 1 cm x 1.2 cm nodule in the right upper lobe abutting the right minor fissure. Follow-up is recommended. Large hiatal hernia. Electronically Signed: Kvng Lira MD at 13:53 EDT , Service support , Chest X-Ray 02/26/21 16:15 IMPRESSION: Endotracheal tube tip within 1 cm of the sanket. This should be retracted 2 to 3 cm. Enteric tube tip above the diaphragm within a large hiatal hernia. Increasing airspace opacity in both lungs, most pronounced in the right midlung. Electronically Signed: Marky Barnes MD at 16:44 EDT Tel , Service support , EKG Initial EKG: Attestation: I personally reviewed and interpreted this EKG as follows: Comments: EKG demonstrates a normal sinus rhythm at a rate of 69. Critical Care Time Critical care time (excluding procedures): 30-74 minutes (45 minutes), Discussing w/Patient &/or Family/Clinical Secretary, Discussing w/Consultants, Arranging Admission or Transfer and Performing Direct Patient Care at Bedside Discharge Plan Triage Chief Complaint: Hypotension ED Provider: Tyrone Horton Dx/Rx/DC Orders Clinical Impression: COVID-19, Acute renal failure, Hypovolemic shock, Respiratory failure, Airway intubation performed without difficulty, Metabolic acidosis with respiratory acidosis Prescriptions: No Action buspirone 15 MG tablet 10 mg PO BID RF: 0 gabapentin 400 MG capsule 400 mg PO TIDCM RF: 0 triamcinolone acetonide 1 APPLIC cream 1 applic topical BID PRN (Reason: Rash/Topical Irritation) RF: 0 lisinopril-hydrochlorothiazide 1 EACH tablet 1 ea PO DAILY RF: 0 metoprolol tartrate 50 mg Tablet 50 mg PO BID RF: 0 Xarelto 20 mg Tablet 20 mg PO DAILY RF: 0 Primary Care Provider: Reuben Martinez Referrals: Reuben Martinez MD [Primary Care Provider] - Disposition Disposition: Acute Care Hospital Discharge Location: [facility]
[2021-02-26] MEDS: 0.9% Normal Saline 1,000 ML 250 ML IV (13:55)
[2021-02-26 14:31] LABS: Magnesium 2.3 mg/dL (1.6-2.6); Phosphorus 12.7 mg/dL (2.5-4.9)
--- NOTE | 2021-02-26 14:46 | NURSING ---
PAGED DR NEGRON , FORDER OPERATOR FOR DR HENDRIX
--- NOTE | 2021-02-26 15:00 | ED.RN ---
patient finished 4L of normal saline. see vital signs documentation. moved to larger room, fontenot placed, placed on bipap. pt awake and repeats help me, and I cannot breathe prior to bipap placement. support provided. cleaned for incontinence of stool and repositioned in bed.
[2021-02-26] MEDS: Succinylcholine Chloride 200 MG/10 ML Vial 100 MG IV (15:35)
[2021-02-26] MEDS: Etomidate 20 MG/10 ML Vial IV (15:35)
[2021-02-26] MEDS: Midazolam 5 MG/ML Syringe IV (15:45)
[2021-02-26] MEDS: Rocuronium Bromide 50 MG/5 ML Vial IV (15:45)
--- NOTE | 2021-02-26 16:15 | RAD_ITS ---
STUDY: X-RAY CHEST REASON FOR EXAM: Female, 76 years old. Tube placement TECHNIQUE: Frontal view of the chest COMPARISON: 02/26/21 FINDINGS: There is an enteric tube noted with its tip above the diaphragm in a large hiatal hernia. The endotracheal tube tip is within 1 cm above the sanket. This should be retracted 2 to 3 cm. There is a right-sided jugular line with its tip in the superior vena cava. There are increasing opacities in both lungs, most pronounced in the right midlung. There are no pleural effusions. There is no pneumothorax. The heart is enlarged, but stable. The visualized osseous structures are within normal limits. RAD/Chest 1 View (Portable) IMPRESSION: Endotracheal tube tip within 1 cm of the sanket. This should be retracted 2 to 3 cm. Enteric tube tip above the diaphragm within a large hiatal hernia. Increasing airspace opacity in both lungs, most pronounced in the right midlung. Electronically Signed: Marky Barnes MD at 16:44 EDT Tel , Service support ,
[2021-02-26] MEDS: Sodium Bicarbonate 75 MEQ in 0.45% Normal Saline 1,000 ML 150 MEQ IV (16:28)
[2021-02-26 16:44] LABS: Reflex Lactate? Y
[2021-02-26 16:51] LABS: Allen Test Positive; Base Excess -18 mmol/L (-2 to +2); Bicarbonate 12.6 mmol/L (22-26); Blood Gas Specimen Type ART; FI02 100; Mode AC; O2 Delivery Device Adult Vent; PEEP 10; PO2 96 mmHG (75-100); RR 14; SITE R Radial; SO2 93 % (95-99); Total Carbon Dioxide 14 mmol/L; Vt 450; pCO2 45.7 mmHg (35-45); pH 7.05 (7.35-7.45)
[2021-02-26 17:42] LABS: Lactic Acid 1.4 mmol/L (0.4-1.9)
--- NOTE | 2021-02-26 18:25 | ED.RN ---
spoke with daughter, Darlin on phone for update on transfer.
--- NOTE | 2021-02-26 18:57 | ED.RN ---
[facility] assisted to transfer pt to their cot- they are managing medications.
== END 2021-02-26 18:58 | disposition short-term general hospital (02) ==
PROVIDERS: Emergency Provider Emergency Medicine; PCP Family Medicine
DX: U07.1 COVID-19 (principal); N17.9 Acute kidney failure, unspecified; E87.4 Mixed disorder of acid-base balance; R57.1 Hypovolemic shock; J96.90 Respiratory failure, unspecified, unspecified whether with hypoxia or hypercapnia; K44.9 Diaphragmatic hernia without obstruction or gangrene; I48.0 Paroxysmal atrial fibrillation; Z79.01 Long term (current) use of anticoagulants; F41.9 Anxiety disorder, unspecified; I11.0 Hypertensive heart disease with heart failure; I50.9 Heart failure, unspecified; Z79.899 Other long term (current) drug therapy; Z87.891 Personal history of nicotine dependence
CPT/HCPCS: 31500; 31720; 36556; 36600; 51702; 71045; 80053; 81001; 82803; 83605; 83735; 84100; 84484; 85025; 85610; 85730; 87040; 87086; 87426; 93005; 94002; 99251; 99285; J7030; J7050; A4216; C1751; G0463; J0330